=== PATIENT | female | born 1970 | race Caucasian/White ===

== ENCOUNTER 2017-05-04 14:51 | Inpatient (IN) ==
[2017-05-04] MEDS ORDERED: *HR* Morphine 2 MG/ML SYRINGE IVP ONE (16:03)
[2017-05-04] MEDS ORDERED: 0.9 % Sodium Chloride 1,000 ML IVC ONE ×2 (16:03→18:46)
[2017-05-04] MEDS ORDERED: *HR* HYDROmorphone (PF) 1 MG/ML SYRINGE IVP ONE ×2 (16:23→18:33)
[2017-05-04 16:35] LABS: Basophils # 0.1 K/mcL (0.0-0.2); Basophils % 0.5 %; Eosinophils # 0.3 K/mcL (0.0-0.6); Eosinophils % 2.9 %; Hemoglobin 16.1 g/dL (11.5-15.4); Immature Granulocytes % 0.9 % (0-4); Lymphocytes # 3.5 K/mcL (0.6-4.6); Mean Corpuscular HGB Conc 35.8 g/dL (31.6-35.5); Mean Corpuscular Hemoglobin 31.8 pg (28.0-33.3); Mean Corpuscular Volume 88.9 fL (83.0-100.0); Mean Platelet Volume 10.5 fL (9.4-12.4); Monocytes # 0.7 K/mcL (0.0-1.3); Monocytes % 7.6 %; Neutrophils # 4.6 K/mcL (1.6-8.9); Platelet Count 225 K/mcL (140-400); Red Blood Count 5.06 M/mcL (3.82-4.97); Red Cell Distribution Width 12.4 % (11.5-14.5); Segmented Neutrophils % 50.1 %
[2017-05-04 16:48] LABS: BUN/Creatinine Ratio 13 (6-26); Blood Urea Nitrogen 10 mg/dL (7-20); Calcium 9.4 mg/dL (8.6-10.8); Carbon Dioxide 23 mEq/L (19-29); Chloride 101 mEq/L (98-109); Glucose 294 mg/dL (70-99); Osmolality,Calculated 290 (280-300); Potassium 3.8 mEq/L (3.5-4.5); Sodium 135 mEq/L (136-145); eGFR For African Americans > 60 (> 60); eGFR For Non-African Americans > 60 (> 60)
[2017-05-04 17:37] LABS: Bilirubin,Urine Negative (Negative); Blood,Urine Negative (Negative); Clarity,Urine Clear (Clear); Color,Urine Yellow (Yellow); Glucose,Urine (UA) >=1000 mg/dL (Normal); Ketones,Urine Negative (Negative); Leukocyte Esterase,Urine Negative (Negative); Nitrite,Urine Negative (Negative); Protein,Urine Trace mg/dL (Neg-Trace); Specific Gravity,Urine 1.021 (1.010-1.025); Urobilinogen,Urine Normal (Normal)
[2017-05-04] MEDS ORDERED: Vancomycin 1,500 MG in D5% in Water 250 ML IVPB ONE (17:50)
[2017-05-04] MEDS ORDERED: Piperacillin/Tazobactam 3.375 GM in D5% in Water (Mini-Bag+) 100 ML IVPB ONE ×2 (17:50→18:15)
--- NOTE | 2017-05-04 18:40 | Emergency Department Note ---
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 exterminator helper use Qualified Code(s): E11.9 - Type 2 diabetes mellitus without complications Chickenpox Qualifiers: Varicella complications: without complication Qualified Code(s): B01.9 - Varicella without complication Hypertension Qualifiers: Hypertension type: essential hypertension Qualified Code(s): I10 - Essential ( primary) hypertension Ankylosing spondylitis Qualifiers: Ankylosing spondylitis location: unspecified site of spine Qualified Code(s): M45.9 - Ankylosing spondylitis of unspecified sites in spine Disposition: Admitted As Inpatient Condition: Fair Time of Disposition: 18:54 General Adult HPI - General Chief complaint: ED Urogenital-Female Stated complaint: Vaginal Abcess Time Seen by Provider: 05/04/17 15:24 Source: patient Mode of arrival: ambulatory Limitations: no limitations Nursing Notes Reviewed: Yes Vital Signs Reviewed: Yes - History of Present Illness HPI Narrative: 46-year-old female presents to the emergency department with concern for worsening of an abscess and cellulitis for which she was treated at [place] emergency department for 2 days ago. 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 Patient denies any fevers. Patient denies any history of hidradenitis. Pain Scale: 10 - Related Data Home Medications Medication Instructions Recorded Confirmed Metoprolol [Lopressor] 100 mg PO BID 04/11/15 05/04/17 Dulaglutide [Trulicity] 1.5 mg SQ SA 02/17/17 05/04/17 Clotrimazole/Betameth Dip CRM 1 appl TP BID 05/04/17 05/04/17 [Lotrisone CRM] Previous Rx's Medication Instructions Recorded Clindamycin HCl 300 mg PO Q6H #40 capsule 04/29/17 Allergies Allergy/AdvReac Type Severity Reaction Status Date / Time tramadol [From Ultram] Allergy Migraine Verified 05/04/17 14:57 ibuprofen AdvReac See Verified 05/04/17 14:57 Comments sulfamethoxazole AdvReac Nausea Verified 05/04/17 14:57 [From Bactrim] trimethoprim [From Bactrim] AdvReac Nausea Verified 05/04/17 14:57 All systems ED: reviewed and negative except as stated. Review of Systems: As Per HPI Constitutional: Denies: fever Gastrointestinal: Denies: abdominal pain, nausea, vomiting Genitourinary: Reports: other (Vaginal swelling, left gluteal redness). 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 history: Reports: cervical cancer, uterine fibroids - Social History Smoking Status: Current every day smoker Smokeless Tobacco Status: No Alcohol use: Reports: occasionally Drug use: Reports: none Physical Exam General: Well Appearing 46-year-old female, in no acute distress Head: autraumatic, EOMI, no conjuncitval pallor, no scleral icterus, Mouth: oral mucous membranes moist Neck: neck soft, trachea midline Chest:: Equal chest wall rise Lungs: Normal lungs sounds bilaterally, no wheezes, no respiratory distress Heart: normal heart sounds, normal rate and rhythm, Abdomen: soft, non-tender, no rigidity, no guarding, no rebdound tenderness exam: Redness and erythema with an opening in the left gluteal fold, mild erythema in the right superior aspect labia majora Lower Extremities: no pedal edema, calves non-tender Integumentary: as mentioned in the exam, skin warm Neuro: Alert Psych: normal affect, normal mood - General Limitations: no limitations General appearance: alert, in no apparent distress Course Vital Signs Temperature 97.4 F L 05/04/17 14:53 Pulse Rate 94 05/04/17 14:53 Respiratory Rate 20 05/04/17 14:53 Blood Pressure 177/101 05/04/17 14:53 O2 Sat by Pulse Oximetry 95 05/04/17 14:53 Temperature 98.3 F 05/04/17 21:35 Pulse Rate 85 05/04/17 21:35 Respiratory Rate 18 05/04/17 21:35 Blood Pressure 198/91 05/04/17 21:35 O2 Sat by Pulse Oximetry 94 05/04/17 21:35 Oxygen Delivery Oxygen Delivery Room Air Medical Decision Making - MDM Narrative Medical decision making narrative: 46-year-old female presents to the emergency department with concern for abscess with accompanying cellulitis in the left gluteal fold that is failed outpatient management with clindamycin. Patient is immunosuppressed with Humira for her autoimmune conditions dealing with her being HLA-B27 positive. Patient has recent diagnosis of chickenpox. Patient also has diabetes. CT scan of the pelvis was obtained due to concern for the abscess extending upward. CT scan of the pelvis did not reveal an abscess, but did reveal stranding as consistent with cellulitis. Because patient is immunosuppressed and has failed outpatient therapy regarding her condition, and admission was discussed with the patient for intravenous antibiotics as we do not want her condition to worsen. Patient agree with the plan. She was provided analgesia here in the emergency department as well as 2 L of normal saline and IV vancomycin and Zosyn. I spoke with the hospitalist regarding the patient's admission and he agreed to accept the patient. Pelvis CT 05/04/17 16:01 IMPRESSION: No evidence of pelvic abscess. Very mild asymmetric infiltration of the subcutaneous fat in the left gluteal fold suggesting a mild cellulitis. Previous hysterectomy. Moderate aortoiliac plaque. D/ / 05/04/2017 18:17:03 Antwon Leong MD / [facility] Interpreting Provider: Antwon Leong MD Vital Signs Temperature 97.4 F L 05/04/17 14:53 Pulse Rate 94 05/04/17 14:53 Respiratory Rate 20 05/04/17 14:53 Blood Pressure 177/101 05/04/17 14:53 O2 Sat by Pulse Oximetry 95 05/04/17 14:53 Temperature 97.4 F L 05/04/17 14:53 Pulse Rate 80 05/04/17 18:30 Respiratory Rate 18 05/04/17 18:30 Blood Pressure 177/90 05/04/17 18:30 O2 Sat by Pulse Oximetry 90 05/04/17 18:30 Oxygen Delivery Oxygen Delivery Room Air - Medical Records Medical records reviewed: Yes I reviewed the patient's medical records. - Lab Data Lab results reviewed: Yes I reviewed the patient's lab results. Result diagrams: 05/04/17 16:23 05/04/17 16:23 Lab Results 05/04/17 05/04/17 05/04/17 Range/Units 16:23 16:23 17:20 WBC 9.2 (4.3-11.1) K/mcL RBC 5.06 H (3.82-4.97) M/mcL Hgb 16.1 H (11.5-15.4) g/dL Hct 45.0 H (35.3-44.9) % MCV 88.9 (83.0-100.0) fL MCH 31.8 (28.0-33.3) pg MCHC 35.8 H (31.6-35.5) g/dL RDW 12.4 (11.5-14.5) % Plt Count 225 (140-400) K/mcL MPV 10.5 (9.4-12.4) fL Immature Gran % 0.9 (0-4) % Seg Neutrophils % 50.1 % Lymphocytes % 38.0 % Monocytes % 7.6 % Eosinophils % 2.9 % Basophils % 0.5 % Neutrophils # 4.6 (1.6-8.9) K/mcL Lymphocytes # 3.5 (0.6-4.6) K/mcL Monocytes # 0.7 (0.0-1.3) K/mcL Eosinophils # 0.3 (0.0-0.6) K/mcL Basophils # 0.1 (0.0-0.2) K/mcL Sodium 135 L (136-145) mEq/L Potassium 3.8 (3.5-4.5) mEq/L Chloride 101 (98-109) mEq/L Carbon Dioxide 23 (19-29) mEq/L BUN 10 (7-20) mg/dL Creatinine 0.75 (0.57-1.11) mg/dL Est GFR ( Amer) > 60 (> 60) Est GFR (Non-Af Amer) > 60 (> 60) BUN/Creatinine Ratio 13 (6-26) Glucose 294 H (70-99) mg/dL Calculated Osmolality 290 (280-300) Calcium 9.4 (8.6-10.8) mg/dL Urine Color Yellow (Yellow) Urine Clarity Clear (Clear) Urine pH 6.0 (5.0-8.0) pH Units Ur Specific Superior 1.021 (1.010-1.025) Urine Protein Trace (Neg-Trace) mg/dL Urine Glucose (UA) >=1000 H (Normal) mg/dL Urine Ketones Negative (Negative) mg/dL Urine Blood Negative (Negative) Urine Nitrite Negative (Negative) Urine Bilirubin Negative (Negative) Urine Urobilinogen Normal (Normal) mg/dL Ur Leukocyte Esterase Negative (Negative) Urine Test (Negative) 05/04/17 Range/Units 17:20 WBC (4.3-11.1) K/mcL RBC (3.82-4.97) M/mcL Hgb (11.5-15.4) g/dL Hct (35.3-44.9) % MCV (83.0-100.0) fL MCH (28.0-33.3) pg MCHC (31.6-35.5) g/dL RDW (11.5-14.5) % Plt Count (140-400) K/mcL MPV (9.4-12.4) fL Immature Gran % (0-4) % Seg Neutrophils % % Lymphocytes % % Monocytes % % Eosinophils % % Basophils % % Neutrophils # (1.6-8.9) K/mcL Lymphocytes # (0.6-4.6) K/mcL Monocytes # (0.0-1.3) K/mcL Eosinophils # (0.0-0.6) K/mcL Basophils # (0.0-0.2) K/mcL Sodium (136-145) mEq/L Potassium (3.5-4.5) mEq/L Chloride (98-109) mEq/L Carbon Dioxide (19-29) mEq/L BUN (7-20) mg/dL Creatinine (0.57-1.11) mg/dL Est GFR ( Amer) (> 60) Est GFR (Non-Af Amer) (> 60) BUN/Creatinine Ratio (6-26) Glucose (70-99) mg/dL Calculated Osmolality (280-300) Calcium (8.6-10.8) mg/dL Urine Color (Yellow) Urine Clarity (Clear) Urine pH (5.0-8.0) pH Units Ur Specific Superior (1.010-1.025) Urine Protein (Neg-Trace) mg/dL Urine Glucose (UA) (Normal) mg/dL Urine Ketones (Negative) mg/dL Urine Blood (Negative) Urine Nitrite (Negative) Urine Bilirubin (Negative) Urine Urobilinogen (Normal) mg/dL Ur Leukocyte Esterase (Negative) Urine Test Negative (Negative) - Radiology Data Radiology results reviewed: Yes I reviewed the patient's radiology results. Attestation Statement - Attestation Attestation: I examined this patient and my medical decision-making was reviewed with the Resident Physician, Dr. Hutson. I agree with the documented findings, disposition and treatment plan as described except to the extent set forth below. Patient is a 46-year-old white female with a history of diabetes, hypertension, HLA-B27, and on Humira who presents to the emergency room today with complaints of 2 cutaneous abscesses located to the vaginal area one of which is spontaneously draining. Patient's been complaining of increasing pain and tenderness to this area. Patient has had one area incised and drained at an outlying ER prior to today's visit and has been on outpatient antibiotics, clindamycin but feel her symptoms are worsening. Patient denies any fevers or chills, no nausea vomiting, has had elevated blood sugars but no upper respiratory symptoms cough sore throat or any other associated symptoms. Patient denies any urinary symptoms or vaginal discharge. Patient also states that she recently has had chickenpox outbreak. Agree patient's physical exam findings as documented. Patient with heart rate greater than 90 and hypertensive on arrival. Afebrile. Patient meets SIRS criteria so blood cultures were obtained a lactate was ordered IV fluids were initiated and empiric antibiotics were started as well as a lactate ordered. We also obtained CT of the pelvis to rule out any pelvic abscess. Patient's labs show an elevated white count in conjunction with a persistent heart rate in the 90s. Patient with hyperglycemia but no acidosis and normal kidney function. Remainder of labs are unremarkable. Patient went CT imaging of her pelvis with contrast which was negative for any pelvic abscess. There is stranding within the soft tissues in the vaginal area and gluteal cleft with cellulitis. Considering patient is diabetic, immunosuppressed, and has failed outpatient management we feel she would benefit from admission with IV antibiotics and continued monitoring. Patient's lactate was within normal limits and she remains hemodynamically stable at this time. Case was discussed with the hospitalist who accepted the patient for admission.
[2017-05-04] MEDS ORDERED: Naloxone 0.4 MG/ML INJ IVP PRN (20:05)
[2017-05-04] MEDS ORDERED: D5% in Water 1,000 ML IVC PRN (20:05)
[2017-05-04] MEDS ORDERED: Acetaminophen 325 MG TABLET PO PRN (20:05)
[2017-05-04] MEDS ORDERED: *HR* Dextrose 50 % in Water (Syg) 50 ML SYRINGE IVP PRN (20:05)
[2017-05-04] MEDS ORDERED: Ondansetron 4 MG/2 ML VIAL IVP PRN (20:05)
[2017-05-04] MEDS ORDERED: Dextrose Gel 15 GM PO PRN ×2 (20:05)
--- NOTE | 2017-05-04 20:11 | Internal Med History&Physical ---
Date of Encounter: 05/04/17 Time of Encounter: 20:08 Assessment and Plan (1) Cellulitis Current visit: Yes Status: Acute Left gluteal cellulitis and ulcer that failed outpatient therapy with clindamycin Discontinue Zosyn, continue vancomycin IV, add Rocephin and metronidazole No abscess to be drained at this moment Consider surgical consult if not improving IV fluids, hold immunosuppressive therapy Omeprazole for GI prophylaxis and subcutaneous heparin for DVT prophylaxis. The patient will be admitted as inpatient, expected to stay more than 2 midnights. Full code. Time spent on this admission 40 minutes Qualifiers: Site of cellulitis: trunk Site of cellulitis of trunk: perineum Qualified Code(s): L03.315 - Cellulitis of perineum (2) Hypertension Current visit: Yes Status: Acute Accelerated hypertension Can add hydralazine IV as needed Qualifiers: Hypertension type: essential hypertension Qualified Code(s): I10 - Essential (primary) hypertension (3) Ankylosing spondylitis Current visit: Yes Status: Acute Stopped Humira as she developed chickenpox Qualifiers: Ankylosing spondylitis location: unspecified site of spine Qualified Code(s ): M45.9 - Ankylosing spondylitis of unspecified sites in spine (4) Chickenpox Current visit: Yes Status: Acute Resolved Qualifiers: Varicella complications: without complication Qualified Code(s): B01.9 - Varicella without complication (5) Diabetes Current visit: Yes Status: Acute Use insulin sliding scale Patient uses trulicity at home Qualifiers: Diabetes mellitus type: type 2 Diabetes mellitus complication status: without complication 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 Javed is a 46 year old female with a past medical history of ankylosing spondylitis with HLA B 27 was treated with Humira, diabetes type 2 not insulin- dependent, recent chickenpox due to immunosuppressive therapy, hydradenitis went to [facility] ER 2 days ago and was started on clindamycin due to a left gluteal area of cellulitis. The patient took it for the past few days without improvement. Came complaining of severe pain in the same area. The CT scan shows a left gluteal fold cellulitis. Glucose is 294 hemoglobin 16.1 heart rate 94 blood pressure 185/89. Was started on vancomycin and Zosyn. Denies any fever, chest pain or shortness of breath. 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) - Social History Smoking Status: Current every day smoker Packs per day: 1/2 -Pack-a-day Smokeless Tobacco Status: No Alcohol use: occasionally Drug use: none - Additional Family History Additional family history: Father with myocardial infarction in his 40s and diabetes, mother with metastatic unknown cancer and CHF Internal Medicine - H&P: Meds Metoprolol [Lopressor] 100 mg PO BID 04/11/15 [History] Dulaglutide [Trulicity] 1.5 mg SQ SA 02/17/17 [History] Clindamycin HCl 300 mg PO Q6H #40 capsule 04/29/17 [Rx] Clotrimazole/Betameth Dip CRM [Lotrisone CRM] 1 appl TP BID 05/04/17 [History] 3 Allergy/AdvReac Type Severity Reaction Status Date / Time tramadol [From Ultram] Allergy Migraine Verified 05/04/17 14:57 ibuprofen AdvReac See Verified 05/04/17 14:57 Comments sulfamethoxazole AdvReac Nausea Verified 05/04/17 14:57 [From Bactrim] trimethoprim [From Bactrim] AdvReac Nausea Verified 05/04/17 14:57 All Systems PM: A 10-system review of systems was performed and is negative for pertinent findings except as documented above in the HPI. Review of systems: No dizziness, other systems out of the 10 reviewed were negative - Constitutional Vitals: Temp Pulse Resp BP Pulse Ox 97.4 F L 80 18 177/90 90 05/04/17 14:53 05/04/17 18:30 05/04/17 18:30 05/04/17 18:30 05/04/17 18:30 General appearance: Present: A&O X 3, morbidly obese - Head Head exam: Present: atraumatic, normocephalic - Eye Eye exam: Present: PERRL, conjuntiva pink, sclera anicteric Pupils: Present: PERRL - Neck Neck exam general surgery: Present: supple, trachea midline. Absent: lymphadenopathy - Respiratory Respiratory exam: Present: CTAB. Absent: accessory muscle use, rales, rhonchi, wheezes - Cardiovascular Cardiovascular exam: Present: RRR, +S1, +S2. Absent: diastolic murmur, gallop, rubs, systolic murmur - GI/Abdominal GI/Abdominal exam: Present: normal bowel sounds, soft, no peritoneal signs. Absent: distended, tenderness - Extremities Exam Extremities exam: Present: warm, radial pulses palpable and symmetrical. Absent : calf tenderness, cyanotic, pedal edema - Neurological Exam Neurological exam: Present: CN II-XII intact, oriented X3, no focal deficits. Absent: pronater drift, facial droop, speech deficit - Skin Skin exam: Present: dry. Absent: intact Additional comments: Health centimeter rounded ulcer in the left gluteal area close to the inguinal area surrounded by erythema. Very small less than 3 mm superficial absces in the right labia majora Internal Med - H&P Results - Labs CBC & Chem 7: 05/04/17 16:23 05/04/17 16:23
[2017-05-04] MEDS: Nicotine 14 MG PATCH.TD24 TD SCH (20:13)
[2017-05-04] MEDS ORDERED: Ipratropium/Albuterol Neb 3 ML IH PRN (20:23)
[2017-05-04] MEDS ORDERED: Vancomycin (wt based) 1,000 MG VIAL IVPB SCH (21:00)
[2017-05-04] MEDS ORDERED: CefTRIAXone 1,000 MG VIAL ONE (21:32)
[2017-05-04] MEDS: 0.9 % Sodium Chloride 1,000 ML IVC SCH (21:37)
[2017-05-04] MEDS: MetroNIDAZOLE 500 MG/100 ML 500 MG/100 ML BAG IVPB SCH ×2 (21:38→22:29)
[2017-05-04] MEDS: *HR* Heparin 5,000 UNIT/ML VIAL SQ SCH (21:38)
[2017-05-04] MEDS: Metoprolol 100 MG TABLET PO SCH (21:38)
[2017-05-04] MEDS: *HR* HYDROmorphone (PF) 1 MG/ML SYRINGE IVP PRN (21:42)
[2017-05-04] MEDS ORDERED: cefTRIAXone 1,000 MG in Water for inj. (sterile) 10 ML IVP SCH (22:00)
[2017-05-04] MEDS: *HR* Promethazine 25 MG/ML VIAL IVP PRN (22:47)
[2017-05-05 00:14] LABS: Hematocrit 42.7 % (35.3-44.9); Hemoglobin 14.8 g/dL (11.5-15.4); Mean Corpuscular HGB Conc 34.7 g/dL (31.6-35.5); Mean Corpuscular Hemoglobin 31.9 pg (28.0-33.3); Mean Platelet Volume 10.1 fL (9.4-12.4); Platelet Count 204 K/mcL (140-400); Red Blood Count 4.64 M/mcL (3.82-4.97); Red Cell Distribution Width 12.3 % (11.5-14.5)
[2017-05-05 00:25] LABS: BUN/Creatinine Ratio 10 (6-26); Blood Urea Nitrogen 8 mg/dL (7-20); Calcium 8.8 mg/dL (8.6-10.8); Carbon Dioxide 27 mEq/L (19-29); Chloride 102 mEq/L (98-109); Glucose 383 mg/dL (70-99); Osmolality,Calculated 298 (280-300); Sodium 137 mEq/L (136-145); eGFR For African Americans > 60 (> 60); eGFR For Non-African Americans > 60 (> 60)
[2017-05-05] MEDS: *HR* HYDROmorphone (PF) 1 MG/ML SYRINGE IVP PRN ×2 (04:37→08:19)
[2017-05-05] MEDS: *HR* Heparin 5,000 UNIT/ML VIAL SQ SCH ×2 (04:46→13:15)
[2017-05-05] MEDS ORDERED: Vancomycin 1,000 MG in D5% in Water 250 ML IVPB SCH (06:00)
[2017-05-05] MEDS ORDERED: Insulin LISPRO 300 UNITS/3 ML VIAL SQ SCH ×3 (07:30→21:00)
[2017-05-05] MEDS: Nicotine 14 MG PATCH.TD24 TD SCH (08:18)
[2017-05-05] MEDS: Metoprolol 100 MG TABLET PO SCH (08:18)
[2017-05-05] MEDS: MetroNIDAZOLE 500 MG/100 ML 500 MG/100 ML BAG IVPB SCH (08:18)
[2017-05-05] MEDS: *HR* Promethazine 25 MG/ML VIAL IVP PRN (08:19)
--- NOTE | 2017-05-05 12:53 | OB/GYN Consult Note ---
Date of Encounter: 05/05/17 Time of Encounter: 12:51 Assessment and Plan (1) Hidradenitis suppurativa Current Visit: Yes Status: Acute examined patient and right labial cyst with purulent discharge. Discussed with . Dr. Le updated Hidradenitis is not within obgyn specialist scope will need referral to surgery for resection. History of Present Illness Reason for consult: other (labial cyst) Past Med Surg Social Fam HX - Past Medical History Medical history: asthma, cancer, diabetes, GERD, hyperlipidemia, hypertension, liver disease, other Psychiatric history: bipolar - Past Surgical History Surgical History: cholecystectomy, hysterectomy, orthopedic, other (Left wrist arthroscopy, right carpal tunnel), other (Bladder surgery) - Social History Smoking Status: Current every day smoker Packs per day: 1/2 -Pack-a-day Smokeless Tobacco Status: No Alcohol use: occasionally Drug use: none Medications and Allergies Metoprolol [Lopressor] 100 mg PO BID 04/11/15 [History] Dulaglutide [Trulicity] 1.5 mg SQ SA 02/17/17 [History] Clindamycin HCl 300 mg PO Q6H #40 capsule 04/29/17 [Rx] Clotrimazole/Betameth Dip CRM [Lotrisone CRM] 1 appl TP BID 05/04/17 [History] 3 Allergy/AdvReac Type Severity Reaction Status Date / Time tramadol [From Ultram] Allergy Migraine Verified 05/04/17 14:57 ibuprofen AdvReac See Verified 05/04/17 14:57 Comments sulfamethoxazole AdvReac Nausea Verified 05/04/17 14:57 [From Bactrim] trimethoprim [From Bactrim] AdvReac Nausea Verified 05/04/17 14:57 Review of Systems Genitourinary Female: genital lesions (pt states has recurrent labial and groin cysts. Usually lances and drains with home wtih resolution, This time not resolving. ), urinary incontinence Exam - Vital Signs Vital signs: Initial Vital Signs Temp Pulse Resp BP Pulse Ox 97.4 F L 94 20 177/101 95 05/04/17 14:53 05/04/17 14:53 05/04/17 14:53 05/04/17 14:53 05/04/17 14:53 - Vulva Vulva: right: ulceration (cyst noted to right labia, draining purulent discharge , pt with pain with any palpation and manupulation.) Results Result Diagrams: 05/05/17 00:02 05/05/17 00:02 Abnormal lab results Glucose 383 mg/dL (70-99) H 05/05/17 00:02 POC Glucose 390 (58-89) H 05/05/17 10:52 Urine Glucose (UA) >=1000 mg/dL (Normal) H 05/04/17 17:20 All other labs normal. Consult Discharge Plan - Plan Referrals: Haily Hicks CNP [Primary Care Provider] -
[2017-05-05] MEDS: 0.9 % Sodium Chloride 1,000 ML IVC SCH (13:13)
[2017-05-05] MEDS ORDERED: *HR* OxyCODONE/APAP 5/325 TABLET PO PRN (13:22)
[2017-05-05] MEDS ORDERED: Vancomycin 1,500 MG in D5% in Water 250 ML IVPB SCH (14:00)
--- NOTE | 2017-05-05 14:06 | General Surgery Consult Note ---
Date of Encounter: 05/05/17 Time of Encounter: 14:05 Assessment and Plan (1) Abscess of skin or subcutaneous tissue Current Visit: Yes Status: Acute cont abx follow up US to assess for fluid collection if no fluid, then only abx needed; if there is fluid, then will consider bedside drainag - possible bedside drainage of L labial boil/abscess - cares per primary Qualifiers: Site of cutaneous abscess: other site Qualified Code(s): L02.818 - Cutaneous abscess of other sites History of Present Illness Consult date: 05/05/17 Reason for consult: other (Left leg abscess/boil) Requesting physician: Lavelle Le History of present illness: 46 year old female with a PMH significant for ankylosing spondylitis with HLA B 27 was treated with Humira, diabetes type 2 not insulin-dependent, recent chickenpox due to immunosuppressive therapy, hydradenitis went to [facility] ER 2 days ago and was started on clindamycin due to a left lower extremity/inner thigh abscess.. The patient took it for the past few days without improvement. Came complaining of severe pain in the same area. SHe was reportedly drained while in the ER, but continues to have pain. The CT scan shows a left gluteal fold cellulitis. Surgery was consulted for surgical recommendations. Past Med Surg Social Fam HX - Past Medical History Medical history: asthma, cancer, diabetes, GERD, hyperlipidemia, hypertension, liver disease, other Psychiatric history: bipolar - Past Surgical History Surgical History: cholecystectomy, hysterectomy, orthopedic, other (Left wrist arthroscopy, right carpal tunnel), other (Bladder surgery) - Social History Smoking Status: Current every day smoker Packs per day: 1/2 -Pack-a-day Smokeless Tobacco Status: No Alcohol use: occasionally Drug use: none - Additional Family History Additional family history: non contributory Medications and Allergies Metoprolol [Lopressor] 100 mg PO BID 04/11/15 [History] Dulaglutide [Trulicity] 1.5 mg SQ SA 02/17/17 [History] Clindamycin HCl 300 mg PO Q6H #40 capsule 04/29/17 [Rx] Clotrimazole/Betameth Dip CRM [Lotrisone CRM] 1 appl TP BID 05/04/17 [History] 3 Allergy/AdvReac Type Severity Reaction Status Date / Time tramadol [From Ultram] Allergy Migraine Verified 05/04/17 14:57 ibuprofen AdvReac See Verified 05/04/17 14:57 Comments sulfamethoxazole AdvReac Nausea Verified 05/04/17 14:57 [From Bactrim] trimethoprim [From Bactrim] AdvReac Nausea Verified 05/04/17 14:57 Review of Systems All systems PM: A 10-system review of systems was performed and is negative for pertinent findings except as documented above in the HPI. General Surgery Exam Initial Vital Signs Temp Pulse Resp BP Pulse Ox 97.4 F L 94 20 177/101 95 05/04/17 14:53 05/04/17 14:53 05/04/17 14:53 05/04/17 14:53 05/04/17 14:53 - General physical appearance well developed, well nourished, no distress - ENT normal mucosa, normocephalic - Respiratory normal expansion, normal respiratory effort - Cardiovascular Cardiovascular exam: Present: RRR - Abdomen Abdomen general surgery: Present: soft, non tender - Genitourinary Present: normal external genitalia, other (small labial boil/abscess) - Integumentary Integumentary general surgery: Present: warm and dry, other (small 2cm region that has mild erythema, no fluctuance, no crepitus; fibrinous material ) - Neurologic Present: CN 2-12 grossly intact - Psychiatric Psychiatric general surgery: Present: A&Ox3 Exam Initial Vital Signs Temp Pulse Resp BP Pulse Ox 97.4 F L 94 20 177/101 95 05/04/17 14:53 05/04/17 14:53 05/04/17 14:53 05/04/17 14:53 05/04/17 14:53 Results - Labs 05/05/17 00:02 05/05/17 00:02 Abnormal lab results Glucose 383 mg/dL (70-99) H 05/05/17 00:02 POC Glucose 390 (58-89) H 05/05/17 10:52 Urine Glucose (UA) >=1000 mg/dL (Normal) H 05/04/17 17:20 Diabetes panel 05/05/17 Range/Units 00:02 Sodium 137 (136-145) mEq/L Potassium 4.0 (3.5-4.5) mEq/L Chloride 102 (98-109) mEq/L Carbon Dioxide 27 (19-29) mEq/L BUN 8 (7-20) mg/dL Creatinine 0.81 (0.57-1.11) mg/dL Glucose 383 H (70-99) mg/dL Calcium 8.8 (8.6-10.8) mg/dL Calcium panel 05/05/17 Range/Units 00:02 Calcium 8.8 (8.6-10.8) mg/dL Pituitary panel 05/05/17 Range/Units 00:02 Sodium 137 (136-145) mEq/L Potassium 4.0 (3.5-4.5) mEq/L Chloride 102 (98-109) mEq/L Carbon Dioxide 27 (19-29) mEq/L BUN 8 (7-20) mg/dL Creatinine 0.81 (0.57-1.11) mg/dL Glucose 383 H (70-99) mg/dL Calcium 8.8 (8.6-10.8) mg/dL Adrenal panel 05/05/17 Range/Units 00:02 Sodium 137 (136-145) mEq/L Potassium 4.0 (3.5-4.5) mEq/L Chloride 102 (98-109) mEq/L Carbon Dioxide 27 (19-29) mEq/L BUN 8 (7-20) mg/dL Creatinine 0.81 (0.57-1.11) mg/dL Glucose 383 H (70-99) mg/dL Calcium 8.8 (8.6-10.8) mg/dL All other labs normal. - Imaging CT scan - abdomen: report reviewed, image reviewed CT scan - pelvis: report reviewed, image reviewed (no fluid collection to drain) Consult Discharge Plan - Plan Referrals: Haily Hicks, RIO [Primary Care Provider] -
[2017-05-05 15:18] VITALS: BP 174/93
--- NOTE | 2017-05-05 16:14 | Discharge Summary ---
Date of Encounter: 05/05/17 Time of Encounter: 16:11 - Discharge Diagnosis (1) Cellulitis Priority: Primary Status: Acute Qualifiers: Site of cellulitis: trunk Site of cellulitis of trunk: perineum Qualified Code(s): L03.315 - Cellulitis of perineum (2) Abscess of skin or subcutaneous tissue Priority: Secondary Status: Acute Qualifiers: Site of cutaneous abscess: other site Qualified Code(s): L02.818 - Cutaneous abscess of other sites (3) Hypertension Priority: Secondary Status: Chronic Qualifiers: Hypertension type: essential hypertension Qualified Code(s): I10 - Essential (primary) hypertension (4) Diabetes Priority: Secondary Status: Chronic Qualifiers: Diabetes mellitus type: type 2 Diabetes mellitus complication status: without complication 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: without petroleum 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 plant operator use Qualified Code(s): E11.9 - Type 2 diabetes mellitus without complications (5) Hidradenitis suppurativa Priority: Secondary Status: Acute (6) Ankylosing spondylitis Priority: Secondary Status: Chronic Qualifiers: Ankylosing spondylitis location: unspecified site of spine Qualified Code(s ): M45.9 - Ankylosing spondylitis of unspecified sites in spine - Discharge Medications Prescriptions: OxyCODONE/APAP 5/325 [Percocet 5/325 MG] 1 each PO Q6HR PRN #20 tablet PRN Reason: Pain Amoxicillin/Clavulanate [Augmentin] 875 mg PO BIDWM #20 tablet Doxycycline Hyclate 100 mg PO BID #20 capsule Home Medications: Metoprolol [Lopressor] 100 mg PO BID 04/11/15 [History] Dulaglutide [Trulicity] 1.5 mg SQ SA 02/17/17 [History] Clotrimazole/Betameth Dip CRM [Lotrisone CRM] 1 appl TP BID 05/04/17 [History] Amoxicillin/Clavulanate [Augmentin] 875 mg PO BIDWM #20 tablet 05/05/17 [Rx] Doxycycline Hyclate 100 mg PO BID #20 capsule 05/05/17 [Rx] OxyCODONE/APAP 5/325 [Percocet 5/325 MG] 1 each PO Q6HR PRN #20 tablet 05/05/17 [Rx] Allergies/Adverse Reactions: 3 Allergy/AdvReac Type Severity Reaction Status Date / Time tramadol [From Ultram] Allergy Migraine Verified 05/04/17 14:57 ibuprofen AdvReac See Verified 05/04/17 14:57 Comments sulfamethoxazole AdvReac Nausea Verified 05/04/17 14:57 [From Bactrim] trimethoprim [From Bactrim] AdvReac Nausea Verified 05/04/17 14:57 Procedures/tests Complete & Pending: Procedures Performed prior 72 hours Category Date Time Status US bladder/limited pelvis [US] Stat Exams 05/05/17 14:00 Completed Date of admission: 05/04/17 22:54 Primary care physician: Haily Hicks Consults: 05/05/17 10:17 Consult to Surgery [CONS] Routine Consulting Provider: [facility] Reason for Consult: left groin abscess Time Notified: 10:17 Call Completed: Yes Discharging clinician: Lavelle Le Anticipated date of discharge: 05/05/17 - Patient Status Disposition: Home, Self-Care Condition: Good Functional capacity at discharge: independent ambulation Overall status at discharge: patient is progressing back to baseline - Discharge Instructions Instructions: Cellulitis (DC), Diabetes Mellitus Type 2 in Adults (DC) Follow Up With: Haily Hicks CNP [Primary Care Provider] - (in 1 week) Mariya Liriano CNP [Advanced Practice Nurse] - 05/13/17 9:00 am Additional Instructions: With wound clinic within 1 week - Diet and Activity Activity: increase activity as tolerated Diet: diabetic diet, low fat, low cholesterol, low salt diet Hospital course: Ms. Javed is a 46 year old female Patient with a history of ankylosing spondylitis, diabetes mellitus type 2, hypertension who presented to the ER with complaints of erythema and redness in her left gluteal fold region for which she had been treated with incision and drainage and outpatient antibiotics without any improvement in her symptoms. She was hospitalized for intravenous antibiotics. CT scan of the pelvis did not show any underlying abscess. Surgery was also consulted to help with management and they do not believe any further procedure needed to be done for this lesion. Patient also has a right labial abscess which was drained by surgery. Since she failed treatment with outpatient clindamycin, she is now being placed on Augmentin and doxycycline to complete 10 day treatment course. She will follow up with surgery in clinic for follow-up. Patient's blood sugars have been elevated here but she has refused insulin. Patient takes Trulicity at home and has missed today's dose. She is advised to take it as soon as she gets home. She will follow up with her primary care provider for further management. - Time Spent with Patient Total time spent providing and/or coordinating discharge services: Less than 30 minutes (25 min) - Constitutional Vitals: Temp Pulse Resp BP Pulse Ox 97.8 F 82 16 174/93 97 05/05/17 15:14 05/05/17 15:14 05/05/17 15:14 05/05/17 15:14 05/05/17 15:14 General appearance: Present: cooperative, A&O X 3, morbidly obese, pleasant, answers questions appropriately - Neck Neck exam general surgery: Present: supple, trachea midline. Absent: lymphadenopathy - Respiratory Respiratory exam: Present: CTAB. Absent: accessory muscle use, rales, rhonchi, wheezes - Cardiovascular Cardiovascular exam: Present: RRR, +S1, +S2. Absent: diastolic murmur, gallop, rubs, systolic murmur - GI/Abdominal GI/Abdominal exam: Present: normal bowel sounds, soft, no peritoneal signs. Absent: distended, tenderness - Skin Skin exam: Present: dry, intact Additional comments: 3 cm wound in the left upper medial thigh within the gluteal fold with surrounding erythema. No fluctuance noted. Fibrinous material enclosing the wound. Right labial abscess present not draining yet. With surrounding cellulitis
[2017-05-05] MEDS ORDERED: Lidocaine 1% 20 ML MDV INFILT ONE (16:15)
--- NOTE | 2017-05-05 16:23 | General Surgery Procedure Note ---
Date of procedure: 05/05/17 Pre-op diagnosis: Right labial abscess Post-op diagnosis: same Procedure: After informed consent was obtained and timeout completed, the patient's right labia was prepped and draped. The area was localized with 4 ML's of 1% lidocaine. After achieving appropriate localization, a 2 cm incision was made over the most fluctuant area using a size 10 blade. There was immediate return of a scant amount of purulent drainage. The cavity was further opened and decompressed using hemostats. The cavity covered with 4 x 4 gauze and taped to secure with a dry dressing. Complications: None Anesthesia: local Surgeon: Renée Allen Track Coach: Mraiya Liriano Estimated blood loss (cc): 0 Pathology: none sent Condition: stable Disposition: no change
[2017-05-05] MEDS ORDERED: Aminoglycoside Consult 1 EACH MC ONE (17:19)
[2017-05-05] MEDS ORDERED: Insulin DETEMIR 100 UNIT/ML X5UNITS SQ SCH (21:00)
== END 2017-05-05 17:20 | disposition home or self-care (01) | DRG 383 ==
LOC: EMEROO 14:51 → 3ANU 14:51
PROVIDERS: ADMIT Internal Medicine; ATTEND Internal Medicine

== ENCOUNTER 2018-02-02 21:03 | Inpatient (IN) ==
[2018-02-03] MEDS ORDERED: Naloxone 0.4 MG/ML INJ IVP PRN (00:07)
[2018-02-03] MEDS ORDERED: *HR* LORazepam 2 MG/ML VIAL IVP PRN (00:07)
[2018-02-03] MEDS ORDERED: Acetaminophen 325 MG TABLET PO PRN (00:07)
[2018-02-03] MEDS ORDERED: Dextrose Gel 15 GM/37.5 ML TUBE PO PRN ×2 (00:09)
[2018-02-03] MEDS ORDERED: *HR* Dextrose 50 % in Water (Syg) 50 ML SYRINGE IVP PRN (00:09)
[2018-02-03] MEDS ORDERED: D5% in Water 1,000 ML IVC PRN (00:09)
--- NOTE | 2018-02-03 00:17 | Internal Med History&Physical ---
<Ammon Bai - Last Filed: 02/03/18 00:12> Date of Encounter: 02/03/18 Time of Encounter: 00:12 Internal Medicine - H&P: HPI Chief complaint: Seizure Admitted From: Hospital to Hospital Transfer Plans for Post Hospital Care: Home History of present illness: Ms. Javed is a 47 year old female with past medical history of asthma, diabetes , reflux, hyperlipidemia, hypertension, liver disease, bipolar, cervical cancer who presents to emergency room with complaint of seizures. She originally presented to [facility] emergency room and was transferred to [facility] for further care. Patient is notably very somnolent during time of interview however history is provided from who is at bedside. He states that starting around 4 PM this evening patient had a witnessed seizure by his daughter and demonstrated jerking movements diffusely. She has never had seizure activity in the past. Patient denied any prodromal symptoms except she has been having a headache for approximately the past week. She has also been treated for UTI as an outpatient. She has not been complaining of any chest pain, shortness of breath, fevers, chills, change in bowel movement, nausea, vomiting. She is not having any symptoms of weakness, numbness, tingling. Per [facility]'s ED note, " She has been seen and evaluated several times in the last 10 days at different emergency rooms. Yesterday she had a CT angiogram of her neck and a days ago she has CT scan of her brain after complaining of headache and numbness on her right side. Extensive workup was negative and she was referred to neurology and has a follow-up appointment scheduled for February 13. She was also diagnosed yesterday with urinary tract infection and prescribed Keflex. 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 " She was also noted to have intermittent numbness and tingling of bilateral UE the last couple days. Was given Fioricet for her headache and discharged home. Vital signs: Significant for hypertension of 171/97 and she has been tolerating 2 L of oxygen at 93%. Laboratory results have been unremarkable including urinalysis which shows increased specific gravity but otherwise no signs of infection. Urine drug screen was positive for barbiturates. CT scan of the head showed no acute process. She had another witnessed seizure at [facility] and she got a loading dose of Keppra as well as Ativan in [facility] and was transferred here. She did have loss of bladder control at that time. Past medical history as above Past surgical history includes cholecystectomy, hysterectomy, orthopedics Social history includes one half pack per day smoker, denies alcohol or drug use. 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, alkalizing spondalysis Psychiatric history: bipolar - Past Surgical History Surgical History: cholecystectomy, hysterectomy, orthopedic, other, other Additional surgical history: CARPEL TUNNEL SX, BLADDER SX - Social History Smoking Status: Current every day smoker Packs per day: 1 Smokeless Tobacco Status: No Alcohol use: occasionally Drug use: none - Family History Mother Adopted: [place]: NERY Family Member Ethnicity: Non- Living Status: Age at : 70 Cause of : CANCER Hx Family Cardiac Disorders: Yes Internal Medicine - H&P: Meds Metoprolol [Lopressor] 100 mg PO BID 04/11/15 [History] Dulaglutide [Trulicity] 1.5 mg SQ SA 02/17/17 [History] Aspirin [Lo-Dose Aspirin EC] 81 mg PO DAILY 01/25/18 [History] Atorvastatin [Lipitor] 10 mg PO HS 01/25/18 [History] Losartan [Cozaar] 50 mg PO DAILY 01/25/18 [History] Omeprazole [PriLOSEC] 20 mg PO DAILY 01/25/18 [History] Pioglitazone [Actos] 15 mg PO 0800 01/25/18 [History] Acetaminophen/Butalbital/Caffe [Fioricet] 1 each PO DAILY #10 tablet 02/03/18 [ Rx] cephALEXin [Keflex] 500 mg PO BID #14 capsule 02/03/18 [Rx] levETIRAcetam [Roweepra] 1,000 mg PO BID #60 tablet 02/03/18 [Rx] 3 Allergy/AdvReac Type Severity Reaction Status Date / Time bupropion [From Wellbutrin] Allergy Confusion Verified 02/01/18 11:01 haloperidol [From Haldol] Allergy See Verified 02/02/18 18:02 Comments latex Allergy Blister Verified 02/01/18 11:01 quinapril [From Accupril] Allergy Palpitation Verified 02/01/18 11:01 s tramadol [From Ultram] Allergy Migraine Verified 02/01/18 11:01 ibuprofen AdvReac See Verified 02/01/18 11:01 Comments morphine AdvReac Palpitation Verified 02/01/18 11:01 s sulfamethoxazole AdvReac Nausea Verified 02/01/18 11:01 [From Bactrim] trimethoprim [From Bactrim] AdvReac Nausea Verified 02/01/18 11:01 ROS unobtainable: due to mental status All Systems PM: A 10-system review of systems was performed and is negative for pertinent findings except as documented above in the HPI. - Constitutional Constitutional: fatigue, no anorexia, no fever(s), no weakness, no weight gain, no weight loss - EENT Eyes: no blurry vision - Cardiovascular Cardiovascular ROS IM: no chest pain, no dyspnea, no dyspnea on exertion, no edema, no lightheadedness, no orthopnea, no syncope - Respiratory Respiratory: no cough, no dyspnea, no dyspnea on exertion, no wheezing - Gastrointestinal Gastrointestinal: no abdominal pain, no constipation, no diarrhea, no nausea, no vomiting - Genitourinary Genitourinary: urinary incontinence, no dysuria, no urinary urgency - Neurological Neurological ROS: confusion, headache(s), no abnormal gait, no abnormal speech, no dizziness, no loss of vision, no numbness, no paresthesias, no tingling, no weakness, no other visual disturbances - Constitutional Vitals: Temp Pulse Resp BP Pulse Ox 98.4 F 96 16 171/97 93 02/02/18 23:05 02/02/18 23:05 02/02/18 23:05 02/02/18 23:05 02/02/18 23:05 Exam: Gen.: Vitals noted. No acute distress. Somnolent during exam, does answer questions but then falls right back asleep HEENT: PERRL/EOMI, oropharynx clear, Normocephalic, atraumatic, MMM. Cardiac: RRR, no murmur, +S1/S2. Mildly tachycardic Pulmonary: CTA bilaterally, no wheezes, rales or rhonchi, equal chest expansion Abdomen: soft, nontender, BS noted, no guarding MSK: ROM intact, no joint swelling noted. Strength 5/5 Extremities: no BLE edema, nontender calf, no cyanosis or clubbing Neuro: Somnolent, moves all extremities, no focal deficits. No reported numbness or tingling. Cranial nerves II through XII intact Psych: Appropriate mood and behavior - Assessment and plan (1) New onset seizure Status: Acute Assessment and plan: - New-onset seizure activity with jerking, urinary incontinence, postictal confusion - Episode witnessed in [facility] emergency department - Loaded with Keppra. - Stable at this time however is lethargic - Inciting event unknown at this time, UA within normal limits with previously documented nitrites. - CT head negative and [facility] Plan - We will consult neurology, patient recommendations - Continue Keppra 1000 mg twice a day - We will obtain EEG, brain MRI to rule out intracranial pathology - Ativan 2 mg when necessary for seizure activity (2) Hypertension Status: Chronic Assessment and plan: - Blood pressure elevated on presentation at 171/97 - Unclear on this patient was taking home blood pressure medications - We will resume home medications and monitor at this time Qualifiers: Hypertension type: essential hypertension Qualified Code(s): I10 - Essential (primary) hypertension (3) Diabetes Status: Chronic Assessment and plan: - Blood sugar 213 on admission - Denies hypoglycemic symptoms - Sliding scale insulin, diabetic diet once more alert We will obtain A1c Qualifiers: Diabetes mellitus type: type 2 Diabetes mellitus system planning engineer insulin use: without system planning engineer use Diabetes mellitus complication status: without complication Qualified Code(s): E11.9 - Type 2 diabetes mellitus without complications (4) Tobacco abuse Status: Chronic Assessment and plan: Discussed cessation with however patient was not alert enough to conversation (5) Chronic headache Status: Acute Assessment and plan: - Possibly prodromal symptoms preceding seizures - We will give symptomatic control right now and treat underlying cause as above Qualifiers: Headache type: unspecified Intractability: not intractable Qualified Code (s): R51 - Headache (6) Urinary tract infection Status: Suspected Assessment and plan: - UTI per ED documentation at [facility] from outpatient setting - Urinalysis obtained in [facility] and showed increased concentration but no evidence of infection - Patient reportedly did not start taking her prescribed Keflex - Urinalysis forward on 02/01 was positive for nitrites. Will continue previously prescribed Keflex - Urine culture pending collection Qualifiers: Urinary tract infection type: acute cystitis Hematuria presence: without hematuria Qualified Code(s): N30.00 - Acute cystitis without hematuria (7) DVT prophylaxis Status: Acute Assessment and plan: Heparin 5000 units every 12 hours - Time Spent With Patient Total time spent is greater than 50% in coordination of care (as documented) at patient's floor/unit and/or counseling patient: <Brando Cutler - Last Filed: 02/03/18 21:41> Date of Encounter: 02/03/18 Internal Medicine - H&P: HPI History of present illness: Ms. Javed is a 47 year old female All Systems PM: A 10-system review of systems was performed and is negative for pertinent findings except as documented above in the HPI. - Constitutional Vitals: Temp Pulse Resp BP Pulse Ox 97.9 F 89 17 148/80 98 02/03/18 14:48 02/03/18 14:48 02/03/18 14:48 02/03/18 14:48 02/03/18 14:48 Internal Med - H&P Results - Labs CBC & Chem 7: 02/03/18 03:30 02/03/18 03:30 Labs: Short CBC 02/03/18 Range/Units 03:30 WBC 12.5 H (4.3-11.1) K/mcL Hgb 15.1 (11.5-15.4) g/dL Hct 44.3 (35.3-44.9) % Plt Count 214 (140-400) K/mcL Neutrophils # 8.6 (1.6-8.9) K/mcL BMP 02/03/18 03:30 Sodium 136 Potassium 3.8 Chloride 105 Carbon Dioxide 19 L BUN 9 Creatinine 0.52 L Glucose 148 H Calcium 8.8 - Impressions ITS Impressions Brain MRI 02/03/18 00:11 IMPRESSION: 1. Motion degraded examination. 2. No acute intracranial abnormality. Specifically, no acute infarction or evidence of mesial temporal sclerosis. 3. 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 D/ / 02/03/2018 11:28:05 Kings Rubi MD / [facility] Interpreting Provider: Kings Rubi MD - Attending Attestation Seen and assessed. Agree with plan per resident. Continue management for new onset seizures - Assessment and plan (1) New onset seizure Status: Acute (2) Hypertension Status: Chronic Qualifiers: Hypertension type: essential hypertension Qualified Code(s): I10 - Essential (primary) hypertension (3) Diabetes Status: Chronic Qualifiers: Diabetes mellitus type: type 2 Diabetes mellitus residential insulin use: without system planning engineer use Diabetes mellitus complication status: without complication Qualified Code(s): E11.9 - Type 2 diabetes mellitus without complications (4) Tobacco abuse Status: Chronic (5) Chronic headache Status: Acute Qualifiers: Headache type: unspecified Intractability: not intractable Qualified Code (s): R51 - Headache (6) Urinary tract infection Status: Suspected Qualifiers: Urinary tract infection type: acute cystitis Hematuria presence: without hematuria Qualified Code(s): N30.00 - Acute cystitis without hematuria - Time Spent With Patient Total time spent is greater than 50% in coordination of care (as documented) at patient's floor/unit and/or counseling patient:
[2018-02-03] MEDS ORDERED: hydrALAZINE 10 MG TABLET PO PRN (01:07)
[2018-02-03 03:48] LABS: Basophils % 0.3 %; Eosinophils # 0.1 K/mcL (0.0-0.6); Hematocrit 44.3 % (35.3-44.9); Hemoglobin 15.1 g/dL (11.5-15.4); Immature Granulocytes % 0.3 % (0-4); Lymphocytes # 2.9 K/mcL (0.6-4.6); Mean Corpuscular HGB Conc 34.1 g/dL (31.6-35.5); Mean Corpuscular Hemoglobin 31.5 pg (28.0-33.3); Mean Corpuscular Volume 92.3 fL (83.0-100.0); Mean Platelet Volume 10.4 fL (9.4-12.4); Monocytes # 0.9 K/mcL (0.0-1.3); Monocytes % 6.9 %; Neutrophils # 8.6 K/mcL (1.6-8.9); Platelet Count 214 K/mcL (140-400); Red Cell Distribution Width 12.3 % (11.5-14.5); Segmented Neutrophils % 68.5 %
[2018-02-03 05:21] LABS: BUN/Creatinine Ratio 17 (6-26); Blood Urea Nitrogen 9 mg/dL (6-20); Calcium 8.8 mg/dL (8.6-10.3); Carbon Dioxide 19 mEq/L (23-29); Chloride 105 mEq/L (98-107); Cholesterol 148 mg/dL (< 200); Glucose 148 mg/dL (70-105); HDL Cholesterol 73 mg/dL (40-59); LDL Cholesterol,Calculated 53 mg/dL (0-99); Osmolality,Calculated 283 (280-300); Potassium 3.8 mEq/L (3.5-5.1); Sodium 136 mEq/L (136-145); Triglycerides 110 mg/dL (< 150); eGFR For Non-African Americans > 60 (> 60)
[2018-02-03] MEDS ORDERED: *HR* Heparin 5,000 UNIT/ML VIAL SQ SCH (06:00)
[2018-02-03] MEDS ORDERED: levETIRAcetam 250 MG TABLET PO SCH (06:00)
[2018-02-03] MEDS ORDERED: Nicotine 7 MG PATCH.TD24 TD SCH (07:15)
[2018-02-03 07:40] LABS: Estimated Average Glucose 226 mg/dl; Hemoglobin A1C 9.5 %
[2018-02-03] MEDS: Insulin LISPRO 300 UNITS/3 ML VIAL SQ SCH ×2 (08:03→13:03)
[2018-02-03] MEDS ORDERED: Aspirin Enteric Coated 81 MG Tablet PO SCH (09:00)
[2018-02-03] MEDS ORDERED: Metoprolol 100 MG TABLET PO SCH (09:00)
[2018-02-03] MEDS ORDERED: cephALEXin 500 MG CAPSULE PO SCH (09:00)
--- NOTE | 2018-02-03 13:48 | Internal Med Progress Note ---
Hospitalist Progress Note - Encounter Date of Encounter: 02/03/18 Time of Encounter: 13:44 - Subjective Interval History: Seen and examined at bedside. Patient is new to me, information obtained from chart review and patient report and has been at bedside as patient does not remember events. Says she is back to baseline and would like to go home today if possible. No further seizure recurrence. Patient and both report increased stressors at home. No previous history of seizures. - Exam Vitals: Temp Pulse Resp BP Pulse Ox 97.9 F 81 16 115/73 93 02/03/18 10:59 02/03/18 10:59 02/03/18 10:59 02/03/18 11:30 02/03/18 10:59 Exam: Gen.: Vitals noted. No acute distress. HEENT: PERRL/EOMI, oropharynx clear, Normocephalic, atraumatic, MMM. Cardiac: RRR, no murmur, +S1/S2. Mildly tachycardic Pulmonary: CTA bilaterally, no wheezes, rales or rhonchi, equal chest expansion Abdomen: soft, nontender, BS noted, no guarding MSK: ROM intact, no joint swelling noted. Strength 5/5 Extremities: no BLE edema, nontender calf, no cyanosis or clubbing Neuro: Somnolent, moves all extremities, no focal deficits. No reported numbness or tingling. Cranial nerves II through XII intact Psych: Appropriate mood and behavior - Assessment and Plan (1) New onset seizure Current Visit: Yes Status: Acute Assessment and Plan: new-onset seizure activity with jerking, urinary incontinence, tongue biting and postictal confusion. Episode witnessed in [place] emergency department. Loaded with Keppra. Brain MRI with evidence of old infarct otherwise nonacute. EEG pending. Cont Keppra. Neurology consulted. (2) Hypertension Current Visit: Yes Status: Chronic Assessment and Plan: per hx. BP controlled. Cont home BP medication (3) Diabetes Current Visit: Yes Status: Chronic Assessment and Plan: uncontrolled; Hgb A1c 9.5. Holding home diabetes medication. SSI. Monitor blood sugar and titrate PRN (4) Tobacco abuse Current Visit: Yes Status: Chronic Assessment and Plan: current smoker; cessation advised (5) Chronic headache Current Visit: Yes Status: Acute Assessment and Plan: possibly prodromal symptoms preceding seizures; symptomatic control right now and treat underlying cause as above (6) Urinary tract infection Current Visit: Yes Status: Suspected Assessment and Plan: UA concerning for UTI. Cont keflex. Follow cx and narrow accordingly DVT Prophylaxis: heparin - Time Spent with Patient Total time spent is greater than 50% in coordination of care (as documented) at patient's floor/unit and/or counseling patient: Internal Medicine: Result - Labs CBC & Chem 7: 02/03/18 03:30 02/03/18 03:30 Labs: Short CBC 02/03/18 Range/Units 03:30 WBC 12.5 H (4.3-11.1) K/mcL Hgb 15.1 (11.5-15.4) g/dL Hct 44.3 (35.3-44.9) % Plt Count 214 (140-400) K/mcL Neutrophils # 8.6 (1.6-8.9) K/mcL BMP 02/03/18 03:30 Sodium 136 Potassium 3.8 Chloride 105 Carbon Dioxide 19 L BUN 9 Creatinine 0.52 L Glucose 148 H Calcium 8.8 - Impressions Impressions Brain MRI 02/03/18 00:11 IMPRESSION: 1. Motion degraded examination. 2. No acute intracranial abnormality. Specifically, no acute infarction or evidence of mesial temporal sclerosis. 3. 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 D/ / 02/03/2018 11:28:05 Kings Rubi MD / dia Interpreting Provider: Kings Rubi MD Consult Discharge Plan - Plan Referrals: Matias Brasher, [facility] [Primary Care Provider] - (2) Hypertension Qualifiers: Qualified Code(s): I10 - Essential (primary) hypertension (3) Diabetes Qualifiers: Qualified Code(s): E11.9 - Type 2 diabetes mellitus without complications (5) Chronic headache Qualifiers: Qualified Code(s): R51 - Headache (6) Urinary tract infection Qualifiers: Qualified Code(s): N30.00 - Acute cystitis without hematuria
--- NOTE | 2018-02-03 13:55 | Neurology - Consult Note ---
<Clark Nazario - Last Filed: 02/03/18 15:21> Date of Encounter: 02/03/18 Time of Encounter: 13:30 Assessment and Plan (1) New onset seizure Status: Acute This is a first time seizure in a 47 yo woman. Unlikely to be epilepsy in origin. EEG did not show any epiletiform activity. MRI Brain showed area of encephalomalacia likely from prior infarct that could be a source of seizure focus. Labs did not show any evidence of a metabolic or toxic cause. UA was pos for barbiturates at [facility] but was given fioricet for prior headache. Currently on Keppra 1000mg BID and continue at dc till seen in follow up Code(s): R56.9 - Unspecified convulsions SNOMED Code(s): 26918424 History of Present Illness Chief complaint: Seizure like activity HPI: Ms. Javed is a 47 year old female with a PMH significant for HTN, DM, dyslipidemia, liver disease and bipolar disorder that's untreated. Neurology consulted for new onset seizures. She says she has had severe headaches for 2 weeks that she describes as pressure like pain in the L parietal region that's been constant. She admits to additional photophobia, orbital pain, redness and tearing and says that it has occasionally transferred to the R parietal region. She has been seen in the ED multiple times with additional neurological complaints and received workups that do not show a cause. Yesterday, she said her ARGUELLO was still present and started getting L arm numbness, then right hand numbness, then perioral numbness about 10 min before witnessed jerking like activity but no rigidity with her eyes rolled back by her daughter. She denied having any other prodromal symptoms besides that transient numbness and denies remembering the event. She arguello never had a seizure before. She denies any diplopia, blurry vision, seeing spots/lights, dizziness/lightheadedness, N/V, neck pain, postictal state, oral trauma, or loss of bladder/bowel function. She was transported by EMS to [facility] and while there had a second witnessed seizure without any prodromal neurological symptoms. This episode she had loss of bladder function and said she bit her tongue, she was given loading dose of Keppra and transferred here. Today, she denies any further seizures and ARGUELLO has mostly subsided. She does complain of dizziness now when going from sitting to standing that will last a few seconds. She denies any alcohol, benzo, or cocaine use, she does admit to anxiety and says her anxiety has been higher recently. UA pos for barbituates at [facility] but received fioricet for a prior ARGUELLO. She has had a medication change 2 weeks ago and was put on lyrica and then taken off after 1 week. 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, alkalizing spondalysis Psychiatric history: bipolar - Past Surgical History Surgical History: cholecystectomy, hysterectomy, orthopedic, other, other Additional surgical history: CARPEL TUNNEL SX, BLADDER SX - Social History Smoking Status: Current every day smoker Packs per day: 1 Smokeless Tobacco Status: No Alcohol use: occasionally Drug use: none - Family History Mother Adopted: [place]: NERY Family Member Ethnicity: Non- Living Status: Age at : 70 Cause of : CANCER Hx Family Cardiac Disorders: Yes Medications and Allergies Metoprolol [Lopressor] 100 mg PO BID 04/11/15 [History] Dulaglutide [Trulicity] 1.5 mg SQ SA 02/17/17 [History] Aspirin [Lo-Dose Aspirin EC] 81 mg PO DAILY 01/25/18 [History] Atorvastatin [Lipitor] 10 mg PO HS 01/25/18 [History] Losartan [Cozaar] 50 mg PO DAILY 01/25/18 [History] Omeprazole [PriLOSEC] 20 mg PO DAILY 01/25/18 [History] Pioglitazone [Actos] 15 mg PO 0800 01/25/18 [History] Acetaminophen/Butalbital/Caffe [Fioricet] 1 each PO DAILY #10 tablet 02/03/18 [ Rx] cephALEXin [Keflex] 500 mg PO BID #14 capsule 02/03/18 [Rx] levETIRAcetam [Roweepra] 1,000 mg PO BID #60 tablet 02/03/18 [Rx] 3 Allergy/AdvReac Type Severity Reaction Status Date / Time bupropion [From Wellbutrin] Allergy Confusion Verified 02/01/18 11:01 haloperidol [From Haldol] Allergy See Verified 02/02/18 18:02 Comments latex Allergy Blister Verified 02/01/18 11:01 quinapril [From Accupril] Allergy Palpitation Verified 02/01/18 11:01 s tramadol [From Ultram] Allergy Migraine Verified 02/01/18 11:01 ibuprofen AdvReac See Verified 02/01/18 11:01 Comments morphine AdvReac Palpitation Verified 02/01/18 11:01 s sulfamethoxazole AdvReac Nausea Verified 02/01/18 11:01 [From Bactrim] trimethoprim [From Bactrim] AdvReac Nausea Verified 02/01/18 11:01 All Systems: The remainder of the systems were reviewed and are negative Physical Examination - Vital Signs Vital Signs: Initial Vital Signs Temp Pulse Resp BP Pulse Ox 98.4 F 96 16 171/97 93 02/02/18 23:05 02/02/18 23:05 02/02/18 23:05 02/02/18 23:05 02/02/18 23:05 - Constitutional General appearance: comfortable - Neurologic Sensorimotor examination: intact Detailed motor examination: full strength in all major muscle groups Detailed sensory examination: intact (light touch, pain/temp, and vibratory sensation ) Reflex and gait examination: intact Mental Status Examination: awake, alert, oriented to person, oriented to place, oriented to time, follows commands appropriately, answers questions appropriately, no aphasia Cranial nerve examination: PERRL, EOMI, visual parrish intact, sensory to face intact, no facial asymmetry is present, no dysarthria, hearing is intact symmetrically, soft palate elevates bilaterally upon phonation, flexes SCM and trapezius muscles symmetrically with full power, tongue protrudes midline, no atrophy or facial fasiculations present Cerebellar examination: no dysmetria Results - Laboratory Findings CBC and BMP: 02/03/18 03:30 02/03/18 03:30 Abnormal lab findings: Abnormal lab results WBC 12.5 K/mcL (4.3-11.1) H 02/03/18 03:30 Carbon Dioxide 19 mEq/L (23-29) L 02/03/18 03:30 Creatinine 0.52 mg/dL (0.60-1.20) L 02/03/18 03:30 Glucose 148 mg/dL (70-105) H 02/03/18 03:30 POC Glucose 207 mg/dL (70-99) H 02/02/18 23:09 Hemoglobin A1c 9.5 % (-5.6) H 02/03/18 03:30 HDL Cholesterol 73 mg/dL (40-59) H 02/03/18 03:30 Consult Discharge Plan - Plan Instructions: Cephalexin (By mouth), Butalbital/Aspirin/Caffeine/Codeine (By mouth), Levetiracetam (By mouth), Urinary Tract Infection in Women (DC), Migraine Headache (DC), Epilepsy (DC) Referrals: Romero Lora DO [Partnered Physician] - 02/24/18 11:15 am (Please call the office if you have not heard from them within 2-3 weeks to schedule follow-up appointment) Matias Brasher CNP [Primary Care Provider] - 02/09/18 11:30 am (Please call for follow-up appointment within 1 week) Prescriptions: Acetaminophen/Butalbital/Caffe [Fioricet] 1 each PO DAILY #10 tablet cephALEXin [Keflex] 500 mg PO BID #14 capsule levETIRAcetam [Roweepra] 1,000 mg PO BID #60 tablet <Romero Lora - Last Filed: 02/03/18 16:27> Date of Encounter: 02/03/18 Time of Encounter: 16:20 Assessment and Plan (1) New onset seizure Status: Acute Ultimately, the patient does have an abnormal MRI which reveals an area of encephalomalacia in the right frontal region which is a residual of a previous cerebral infarct which occurred back in 2015. As far she knows the etiology for this event was never determined. I do not have records available to me from that previous assessment. His my suspicion that perhaps this area of encephalomalacia may present some cortical instability and decreased his seizure threshold under certain circumstances. Perhaps sleep deprivation and the urinary tract infection may have lowered the seizure threshold. I do not see any evidence of a central nervous system infectious process. The brain reveals no evidence of temporal lobe enhancement to acute cerebral infarct. The urinalysis was positive for barbiturates however she takes Fioricet for her headaches and was given Fioricet at [facility]. For now I would like to go ahead and maintain the Keppra 1000 mg twice a day. I have also recommended that she be discharged on the Fioricet to use as needed for headache and minus standing that she has migraine headaches feel far between. I will follow-up with her my office over the next week or so for ongoing care. The EEG was normal. However normal EEG does not preclude a diagnosis of seizure or epilepsy. History of Present Illness HPI: The chart was reviewed, showing was seen and examined independently. Ms. Javed is a 47 year old female seen for neurologic evaluation secondary to seizure-like activity with associated headache. I agree with Dr. Nazario's assessment as stated above. All Systems: The remainder of the systems were reviewed and are negative Review of Systems: The balance of the systems review is negative. Physical Examination - Vital Signs Vital Signs: Initial Vital Signs Temp Pulse Resp BP Pulse Ox 98.4 F 96 16 171/97 93 02/02/18 23:05 02/02/18 23:05 02/02/18 23:05 02/02/18 23:05 02/02/18 23:05 - Neurologic Detailed motor examination: full strength in all major muscle groups Motor examination - right side: 5/5: deltoids, biceps, triceps, wrist flexion, wrist extension, meatcutter, hip flexors, tibialis Anterior, quadriceps, toe extension (EHL), plantarflexion Motor examination - left side: 5/5: deltoids, biceps, triceps, wrist flexion, wrist extension, hip flexors, meatcutter, quadriceps, tibialis Anterior, toe extension (EHL), plantarflexion Mental Status Examination: awake, alert, oriented to person, oriented to place, oriented to time, follows commands appropriately, answers questions appropriately, no agnosia, no aphasia, no aproxia Cranial nerve examination: PERRL, EOMI, visual parrish intact, corneal reflexes brisk symmetrically, sensory to face intact, mastication intact, no facial asymmetry is present, no dysarthria, hearing is intact symmetrically, soft palate elevates bilaterally upon phonation, gag reflex intact, flexes SCM and trapezius muscles symmetrically with full power, tongue protrudes midline, no atrophy or facial fasiculations present Cerebellar examination: no dysmetria, performs finger to nose and heel to smith symmetrically without ataxia, no gait ataxia, no truncal ataxia, no difficulty with rapid alternating movements Results - Laboratory Findings CBC and BMP: 02/03/18 03:30 02/03/18 03:30 Abnormal lab findings: Abnormal lab results WBC 12.5 K/mcL (4.3-11.1) H 02/03/18 03:30 Carbon Dioxide 19 mEq/L (23-29) L 02/03/18 03:30 Creatinine 0.52 mg/dL (0.60-1.20) L 02/03/18 03:30 Glucose 148 mg/dL (70-105) H 02/03/18 03:30 POC Glucose 207 mg/dL (70-99) H 02/02/18 23:09 Hemoglobin A1c 9.5 % (-5.6) H 02/03/18 03:30 HDL Cholesterol 73 mg/dL (40-59) H 02/03/18 03:30
--- NOTE | 2018-02-03 14:45 | EEG/EMG/Oth Biometrics Report ---
EEG Procedure Report Date of procedure: 02/03/18 EEG Procedure: Routine EEG Procedure Note: This is a report of a 21 channel bipolar and referential montage EEG. A posterior dominant rhythm of 10 Hz moderate voltage alpha frequencies identified symmetrically in the posterior head region. This rhythm attenuates symmetrically with eye opening. Hyperventilation is not performed during the recording. Periods of drowsiness and stage II sleep are identified as reference by dropout of the posterior dominant rhythm and emergence of vertex activity K complexes and sleep spindles. Photic stimulation is performed and does not produce a driving response. The EKG rhythm strip shows normal sinus rhythm at 84 bpm. Impressions: This EEG recording is within normal limits. There is no evidence of epileptiform activity identified during the study. Comment: A normal EEG does not preclude a diagnosis of seizure or epilepsy. If the clinical suspicion for seizure activity is high, serial EEGs or perhaps a prolonged recording may increase the yield. Please correlate clinically.
[2018-02-03 14:49] VITALS: BP 148/80
--- NOTE | 2018-02-03 15:36 | Discharge Summary ---
Orders not resulted at time of discharge: Pending orders Date of Encounter: 02/03/18 Time of Encounter: 15:33 - Discharge Diagnosis (1) New onset seizure Priority: Primary Status: Inactive (2) Hypertension Priority: Secondary Status: Chronic Qualifiers: Hypertension type: essential hypertension Qualified Code(s): I10 - Essential (primary) hypertension (3) Diabetes Priority: Secondary Status: Chronic Qualifiers: Diabetes mellitus type: type 2 Diabetes mellitus director long term care insulin use: without director long term care use Diabetes mellitus complication status: without complication Qualified Code(s): E11.9 - Type 2 diabetes mellitus without complications (4) Tobacco abuse Priority: Secondary Status: Chronic (5) Chronic headache Priority: Primary Status: Inactive Qualifiers: Headache type: unspecified Intractability: intractable Qualified Code(s) : R51 - Headache (6) Urinary tract infection Priority: Primary Status: Acute Qualifiers: Urinary tract infection type: acute cystitis Hematuria presence: without hematuria Qualified Code(s): N30.00 - Acute cystitis without hematuria Hospital course: Ms. Javed is a 47 year old female with PMH CVA, migraines, , asthma, diabetes, hypertension and bipolar presented to [facility] on 02/03/2018 with concern for seizure activity. She was placed in observation status for further workup and treatment. Outside hospital head CT unremarkable. Brain MRI with evidence of old CVA with residual encephalomalacia in the right frontal region. She was evaluated by neurology who suspected the area encephalomalacia possibly causing some cortical instability and therefore decreasing seizure threshold. Patient also had suspected UTI and reported increased stressors at home. EEG without evidence of seizure activity. No seizure recurrence while inpatient and patient requested discharge home. She was discharged home on Keppra for seizures and Fioricet for migraines per neurology recommendations. She is also discharged home on Keflex for suspected UTI. She was advised to return to ER if seizure activity recurred. Follow-up with neurology outpatient. Discharge discussed with: patient - Time Spent with Patient Total time spent providing and/or coordinating discharge services: - Discharge Medications Prescriptions: Acetaminophen/Butalbital/Caffe [Fioricet] 1 each PO DAILY #10 tablet cephALEXin [Keflex] 500 mg PO BID #14 capsule Home Medications: Metoprolol [Lopressor] 100 mg PO BID 04/11/15 [History] Aspirin [Lo-Dose Aspirin EC] 81 mg PO DAILY 01/25/18 [History] Losartan [Cozaar] 50 mg PO DAILY 01/25/18 [History] Omeprazole [PriLOSEC] 20 mg PO DAILY 01/25/18 [History] Acetaminophen/Butalbital/Caffe [Fioricet] 1 each PO DAILY #10 tablet 02/03/18 [ Rx] cephALEXin [Keflex] 500 mg PO BID #14 capsule 02/03/18 [Rx] Atorvastatin Calcium [Lipitor] 20 mg PO QPM 02/08/18 [History] Dulaglutide [Trulicity] 0.75 mg PO QWEEK 02/08/18 [History] Ibuprofen [Ibu] 800 mg PO Q8H PRN 02/08/18 [History] LevETIRAcetam [Keppra] 1,000 mg PO BID 02/08/18 [History] Pioglitazone HCl [Actos] 30 mg PO DAILY 02/08/18 [History] Solifenacin Succinate [Vesicare] 10 mg PO DAILY 02/08/18 [History] ALPRAZolam [Xanax 0.25 MG Tablet] 0.25 mg PO DAILY PRN 10 Days #10 tablet [Rx] Sertraline [Zoloft] 50 mg PO DAILY #30 tablet 02/10/18 [Rx] Topiramate [Topamax] 25 mg PO BID #60 tablet 02/10/18 [Rx] Allergies/Adverse Reactions: 3 Allergy/AdvReac Type Severity Reaction Status Date / Time bupropion [From Wellbutrin] Allergy Confusion Verified 02/13/18 17:53 haloperidol [From Haldol] Allergy See Verified 02/13/18 17:53 Comments latex Allergy Blister Verified 02/13/18 17:53 quinapril [From Accupril] Allergy Palpitation Verified 02/13/18 17:53 s tramadol [From Ultram] Allergy Migraine Verified 02/13/18 17:53 ibuprofen AdvReac See Verified 02/13/18 17:53 Comments morphine AdvReac Palpitation Verified 02/13/18 17:53 s sulfamethoxazole AdvReac Nausea Verified 02/13/18 17:53 [From Bactrim] trimethoprim [From Bactrim] AdvReac Nausea Verified 02/13/18 17:53 Date of admission: 02/03/18 13:51 Primary care physician: Matias Brasher CNP Consults: 02/03/18 00:10 Consult to Neurology [CONS] Routine Consulting Provider: Neurology [facility] Reason for Consult: new onset seizure activity Call Completed: No 02/03/18 11:58 Consult to Interpret Exam [CONS] Routine Consulting Provider: Zayda Hall I Consult to Interpret Exam: Interpret EEG Discharging clinician: Vee Herzog Anticipated date of discharge: 02/03/18 - Constitutional Vitals: Temp Pulse Resp BP Pulse Ox 97.9 F 89 17 148/80 98 02/03/18 14:48 02/03/18 14:48 02/03/18 14:48 02/03/18 14:48 02/03/18 14:48 General appearance: Present: A&O X 3, morbidly obese, pleasant, no acute distress - Head Head exam: Present: atraumatic, normocephalic - Eye Eye exam: Present: PERRL, conjuntiva pink, sclera anicteric Pupils: Present: PERRL - Neck Neck exam general surgery: Present: supple, trachea midline. Absent: lymphadenopathy - Respiratory Respiratory exam: Present: CTAB. Absent: accessory muscle use, rales, rhonchi, wheezes - Cardiovascular Cardiovascular exam: Present: RRR, +S1, +S2. Absent: diastolic murmur, gallop, rubs, systolic murmur - GI/Abdominal GI/Abdominal exam: Present: normal bowel sounds, soft, no peritoneal signs. Absent: distended, tenderness - Extremities Exam Extremities exam: Present: warm, radial pulses palpable and symmetrical. Absent : calf tenderness, cyanotic, pedal edema - Neurological Exam Neurological exam: Present: CN II-XII intact, oriented X3, no focal deficits. Absent: pronater drift, facial droop, speech deficit - Skin Skin exam: Present: dry, intact - Patient Status Disposition: Home, Self-Care Condition: Good Functional capacity at discharge: independent ambulation Overall status at discharge: patient is back to baseline - Discharge Instructions Instructions: Cephalexin (By mouth), Butalbital/Aspirin/Caffeine/Codeine (By mouth), Levetiracetam (By mouth), Urinary Tract Infection in Women (DC), Migraine Headache (DC), Epilepsy (DC) Follow Up With: Romero Lora DO [Partnered Physician] - 02/24/18 11:15 am (Please call the office if you have not heard from them within 2-3 weeks to schedule follow-up appointment) Matias Brasher CNP [Primary Care Provider] - 02/09/18 11:30 am (Please call for follow-up appointment within 1 week) - Diet and Activity Activity: increase activity as tolerated Diet: advance to your usual diet
== END 2018-02-03 16:09 | disposition home or self-care (01) | DRG 53 ==
LOC: 3BNU
PROVIDERS: ADMIT Internal Medicine; ATTEND Internal Medicine

== ENCOUNTER 2018-02-08 10:00 | Observation (INO) ==
[2018-02-08 10:33] LABS: Bilirubin,Urine Negative (Negative); Blood,Urine Negative (Negative); Clarity,Urine Clear (Clear); Color,Urine Yellow (Yellow); Glucose,Urine (UA) Normal (Normal); Ketones,Urine Negative (Negative); Leukocyte Esterase,Urine Negative (Negative); Nitrite,Urine Negative (Negative); PH,Urine 6.5 pH Units (5.0-8.0); Protein,Urine Negative (Neg-Trace); Specific Gravity,Urine 1.009 (1.010-1.025); Urobilinogen,Urine Normal (Normal)
[2018-02-08 10:41] LABS: Hematocrit 47.5 % (35.3-44.9); Mean Corpuscular HGB Conc 33.7 g/dL (31.6-35.5); Mean Corpuscular Hemoglobin 31.5 pg (28.0-33.3); Mean Corpuscular Volume 93.5 fL (83.0-100.0); Mean Platelet Volume 10.7 fL (9.4-12.4); Platelet Count 266 K/mcL (140-400); Red Blood Count 5.08 M/mcL (3.82-4.97); Red Cell Distribution Width 11.9 % (11.5-14.5)
--- NOTE | 2018-02-08 10:48 | Emergency Department Note ---
Disposition Clinical Impression: TIA (transient ischemic attack) Diabetes mellitus with hyperglycemia Qualifiers: Diabetes mellitus type: type 2 Diabetes mellitus skilled nursing insulin use: without termite treater helper use Qualified Code(s): E11.65 - Type 2 diabetes mellitus with hyperglycemia Disposition: Admitted As Inpatient Condition: Fair Referrals: Matias Brasher CNP [Primary Care Provider] - Time of Disposition: 12:02 Altered Mental Status HPI - General Chief Complaint: ED Altered Mental Status Stated Complaint: right sided numbness Time Seen by Provider: 02/08/18 10:07 Nursing Notes Reviewed: Yes Vital Signs Reviewed: Yes - History of Present Illness HPI Narrative: I did review the patient's previous record and did see her immediately upon arrival and also spoke with the paramedics and the story is that she has had intermittent headaches for the last 2 weeks rotating between the left side of the head and the right side of the head and did wake up with a headache around 4 :00 in the morning with left arm numbness which then moved over to become right arm numbness. There is no weakness of the extremities. No paresthesias of the lower extremities. No slurred speech or facial droop however the patient did have confusion as evidenced by the fact that she did not remember how to make coffee her how to flush the toilet. She is here with her daughter who helps with the history. The patient states the headache pain is constant and sharp last 2 weeks but intermittently worse. There is no fever or skin rash. Did have some rhinorrhea last night but none today. No cough or sneeze. No blurred vision. No blood in the urine or stool. No skin rash but does have a slight bruise just under the umbilicus in the abdomen. Social history: Smoker, no alcohol or drugs. Patient does have a history of strokes but also has a history of seizures and does get the arm numbness after her seizures but does not remember recurrent seizure/recent seizure - Related Data Home Medications Medication Instructions Recorded Confirmed Metoprolol [Lopressor] 100 mg PO BID 04/11/15 02/08/18 Aspirin [Lo-Dose Aspirin EC] 81 mg PO DAILY 01/25/18 02/08/18 Losartan [Cozaar] 50 mg PO DAILY 01/25/18 02/08/18 Omeprazole [PriLOSEC] 20 mg PO DAILY 01/25/18 02/08/18 Atorvastatin Calcium [Lipitor] 20 mg PO QPM 02/08/18 02/08/18 Dulaglutide [Trulicity] 0.75 mg PO QWEEK 02/08/18 02/08/18 Ibuprofen [Ibu] 800 mg PO Q8H PRN 02/08/18 02/08/18 Pioglitazone HCl [Actos] 30 mg PO DAILY 02/08/18 02/08/18 Solifenacin Succinate [Vesicare] 10 mg PO DAILY 02/08/18 02/08/18 Previous Rx's Medication Instructions Recorded Acetaminophen/Butalbital/Caffe 1 each PO DAILY #10 tablet 02/03/18 [Fioricet] cephALEXin [Keflex] 500 mg PO BID #14 capsule 02/03/18 levETIRAcetam [Roweepra] 1,000 mg PO BID #60 tablet 02/03/18 Allergies Allergy/AdvReac Type Severity Reaction Status Date / Time bupropion [From Wellbutrin] Allergy Confusion Verified 02/01/18 11:01 haloperidol [From Haldol] Allergy See Verified 02/02/18 18:02 Comments latex Allergy Blister Verified 02/01/18 11:01 quinapril [From Accupril] Allergy Palpitation Verified 02/01/18 11:01 s tramadol [From Ultram] Allergy Migraine Verified 02/01/18 11:01 ibuprofen AdvReac See Verified 02/01/18 11:01 Comments morphine AdvReac Palpitation Verified 02/01/18 11:01 s sulfamethoxazole AdvReac Nausea Verified 02/01/18 11:01 [From Bactrim] trimethoprim [From Bactrim] AdvReac Nausea Verified 02/01/18 11:01 All systems ED: reviewed and negative except as stated. 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 EYES: PERRL, EOMI, no scleral icterus NOSE: The nose is normal in appearance without rhinorrhea NECK: Supple without rigidity, no JAMES RESP: Normal chest excursion with respiration; breath sounds clear and equal bilaterally; no wheezes, rhonchi, or rales CARD: Regular rhythm, without murmurs, rub or gallop ABD: Non-distended; non-tender, soft, without rigidity, rebound or guarding SKIN: Normal for age and race; warm and dry; no apparent lesions, no rash NEUROLOGICAL: Patient is alert and oriented times three. Cranial nerves III- XII are intact except for minimally decreased sensation over the left anabaptist area . Sensory and motor functions are intact. Strength is 5/5 for flexion and extension in all 4 extremities. Finger to nose testing is equal and normal bilaterally. Course Vital Signs Temperature 98.6 F 02/08/18 10:03 Pulse Rate 80 02/08/18 10:03 Respiratory Rate 13 02/08/18 10:03 Blood Pressure 168/85 02/08/18 10:03 O2 Sat by Pulse Oximetry 94 02/08/18 10:03 Temperature 98.6 F 02/08/18 10:03 Pulse Rate 77 02/08/18 12:13 Respiratory Rate 16 02/08/18 12:13 Blood Pressure 180/95 02/08/18 12:13 O2 Sat by Pulse Oximetry 95 02/08/18 12:13 Oxygen Delivery Oxygen Delivery Room Air Altered Mental Status - MDM Narrative Medical decision making narrative: The patient's symptoms are more consistent with chronic headache, possible seizure although there is no bite gabriel evident on the tongue and no gross evidence of urinary incontinence and certainly acute stroke is extremely unlikely with 2 week history of headache and 2 week history of intermittent numbness of the upper extremities. Head CT, labs, EKG will be done with the workup. Her EKG does show normal sinus rhythm with rate of 76 without acute ischemic changes or evidence of arrhythmia. Additional studies pending. Labs within normal limits except elevated BS 1123 I did speak with the hospitalist who accepts the patient for admission for evaluation of possible TIA. She did ask that I call neurology and I will discuss further with them. At this point the patient is not a thrombolytic candidate due to prolonged duration of symptoms and extremely low stroke scale. She did pass her swallow study will receive 1 g of Tylenol for her headache 1159 I did speak with Romero Lora who agrees with the care plan and he will consult 1205 I did go in and speak again with the patient and the family and answer questions and The diagnosis and they are comfortable with the disposition plan 1220 - Medical Records Medical records reviewed: Yes I reviewed the patient's medical records. - Lab Data Lab results reviewed: Yes I reviewed the patient's lab results. Result diagrams: 02/08/18 10:26 02/08/18 10:26 Lab Results 02/08/18 02/08/18 02/08/18 Range/Units 10:19 10:26 10:26 WBC 9.4 (4.3-11.1) K/mcL RBC 5.08 H (3.82-4.97) M/mcL Hgb 16.0 H (11.5-15.4) g/dL Hct 47.5 H (35.3-44.9) % MCV 93.5 (83.0-100.0) fL MCH 31.5 (28.0-33.3) pg MCHC 33.7 (31.6-35.5) g/dL RDW 11.9 (11.5-14.5) % Plt Count 266 (140-400) K/mcL MPV 10.7 (9.4-12.4) fL Sodium 137 (136-145) mEq/L Potassium 4.2 (3.5-5.1) mEq/L Chloride 103 (98-107) mEq/L Carbon Dioxide 28 (23-29) mEq/L BUN 7 (6-20) mg/dL Creatinine 0.56 L (0.60-1.20) mg/dL Est GFR ( Amer) > 60 (> 60) Est GFR (Non-Af Amer) > 60 (> 60) BUN/Creatinine Ratio 13 (6-26) Glucose 263 H (70-105) mg/dL Calculated Osmolality 291 (280-300) Calcium 9.3 (8.6-10.3) mg/dL Troponin I < 0.03 (< 0.04) ng/mL Urine Color Yellow (Yellow) Urine Clarity Clear (Clear) Urine pH 6.5 (5.0-8.0) pH Units Ur Specific [place] 1.009 L (1.010-1.025) Urine Protein Negative (Neg-Trace) mg/dL Urine Glucose (UA) Normal (Normal) mg/dL Urine Ketones Negative (Negative) mg/dL Urine Blood Negative (Negative) Urine Nitrite Negative (Negative) Urine Bilirubin Negative (Negative) Urine Urobilinogen Normal (Normal) mg/dL Ur Leukocyte Esterase Negative (Negative) - Radiology Data Radiology results reviewed: Yes I reviewed the patient's radiology results. TPA Checklist - LKW: 3-4.5 hrs Add. Warnings/Precautions Patient/family understanding: The patient/family members have been counseled and understood the risk, benefit , and alternatives of treatment. Critical Care Time Critical Care Time: No NIH Stroke Scale - Level of Consciousness LOC: Alert - LOC Questions LOC Questions: Answers both correctly - LOC Commands LOC Commands: Performs both correctly - Best Gaze Best Gaze: Normal - Visual Visual: No visual loss - Facial Palsy Facial Palsy: Normal - Motor Arms Motor Arm-Left: No drift for 10 seconds Motor Arm-Right: No drift for 10 seconds - Motor Legs Motor Leg-Left: No drift for 5 seconds Motor Leg-Right: No drift for 5 seconds - Limb Ataxia Limb Ataxia: Normal, No Ataxia - Sensory Sensory: Mild to moderate loss, "not as sharp" - Best Language Best Language: No aphasia - Dysarthria Dysarthria: Normal - Extinction and Inattention Extinction and Inattention: Normal - NIHSS Total Score NIHSS Total Score: 1
[2018-02-08 10:57] LABS: BUN/Creatinine Ratio 13 (6-26); Blood Urea Nitrogen 7 mg/dL (6-20); Calcium 9.3 mg/dL (8.6-10.3); Carbon Dioxide 28 mEq/L (23-29); Chloride 103 mEq/L (98-107); Glucose 263 mg/dL (70-105); Osmolality,Calculated 291 (280-300); Potassium 4.2 mEq/L (3.5-5.1); Sodium 137 mEq/L (136-145); Troponin I < 0.03 ng/mL (< 0.04); eGFR For Non-African Americans > 60 (> 60)
[2018-02-08] MEDS ORDERED: Ketorolac 15 MG/ML VIAL IM ONE (12:51)
[2018-02-08] MEDS ORDERED: (Dulaglutide [Trulicity] 0.75 MG) SQ SCH (13:00)
[2018-02-08] MEDS ORDERED: Prochlorperazine 10 MG/2 ML VIAL IVP ONE (13:00)
[2018-02-08] MEDS ORDERED: Ketorolac 30 MG/ML VIAL IVP ONE (13:10)
[2018-02-08] MEDS ORDERED: Nicotine 14 MG PATCH.TD24 TD SCH (14:00)
[2018-02-08] MEDS ORDERED: Dextrose Gel 15 GM/37.5 ML TUBE PO PRN ×2 (14:16)
[2018-02-08] MEDS ORDERED: D5% in Water 1,000 ML IVC PRN (14:16)
[2018-02-08] MEDS ORDERED: *HR* Dextrose 50 % in Water (Syg) 50 ML SYRINGE IVP PRN (14:16)
--- NOTE | 2018-02-08 14:22 | Internal Med History&Physical ---
<Bess Hood Manjit - Last Filed: 02/08/18 17:26> Date of Encounter: 02/08/18 Time of Encounter: 14:22 Internal Medicine - H&P: HPI Chief complaint: Right-sided numbness Admitted From: Home Plans for Post Hospital Care: Home History of present illness: Ms. Javed is a 47 year old female with history of seizures, stroke, bipolar, DM , syncope, and HTN. The patient here after having a reported ARGUELLO for the past 2 weeks. The patient also noted some right sided weakness and confusion. The patient had a recent admission due to having seizures. She was started on levETIRAcetam on 02/03/2018 for seizures during that time. Ct of head showed no acute abnormalities. There was a old cva noted. She indicated ARGUELLO, and was given a ARGUELLO cocktail. The patient was currently moving about in the bed stating she can 't take toradol. Apparently the patient was talking about haldol and thought she had received that. She began thrashing around the bed stating the med was bothering her right leg. Pedal pulses + and present. Skin equally warm to both legs. The patient was alert and oriented x3. Neurology was consulted in the ED. A psych consult was placed due to the nature of the patient's behavior. The patient has history of bipolar disease. Family also reported issues with elevated blood sugars at home. Currently 263. Bp uncontrolled on arrival. 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, alkalizing spondalysis Psychiatric history: bipolar - Past Surgical History Surgical History: cholecystectomy, hysterectomy, orthopedic, other, other Additional surgical history: carpal tunnel - Social History Smoking Status: Current every day smoker Packs per day: 1 Smokeless Tobacco Status: No Alcohol use: occasionally Drug use: none - Family History Mother Adopted: No Family Member Ethnicity: Non- Living Status: Hx Family Cardiac Disorders: Yes Internal Medicine - H&P: Meds Metoprolol [Lopressor] 100 mg PO BID 04/11/15 [History] Aspirin [Lo-Dose Aspirin EC] 81 mg PO DAILY 01/25/18 [History] Losartan [Cozaar] 50 mg PO DAILY 01/25/18 [History] Omeprazole [PriLOSEC] 20 mg PO DAILY 01/25/18 [History] Acetaminophen/Butalbital/Caffe [Fioricet] 1 each PO DAILY #10 tablet 02/03/18 [ Rx] cephALEXin [Keflex] 500 mg PO BID #14 capsule 02/03/18 [Rx] Atorvastatin Calcium [Lipitor] 20 mg PO QPM 02/08/18 [History] Dulaglutide [Trulicity] 0.75 mg PO QWEEK 02/08/18 [History] Ibuprofen [Ibu] 800 mg PO Q8H PRN 02/08/18 [History] LevETIRAcetam [Keppra] 1,000 mg PO BID 02/08/18 [History] Pioglitazone HCl [Actos] 30 mg PO DAILY 02/08/18 [History] Solifenacin Succinate [Vesicare] 10 mg PO DAILY 02/08/18 [History] 3 Allergy/AdvReac Type Severity Reaction Status Date / Time bupropion [From Wellbutrin] Allergy Confusion Verified 02/01/18 11:01 haloperidol [From Haldol] Allergy See Verified 02/02/18 18:02 Comments latex Allergy Blister Verified 02/01/18 11:01 quinapril [From Accupril] Allergy Palpitation Verified 02/01/18 11:01 s tramadol [From Ultram] Allergy Migraine Verified 02/01/18 11:01 ibuprofen AdvReac See Verified 02/01/18 11:01 Comments morphine AdvReac Palpitation Verified 02/01/18 11:01 s sulfamethoxazole AdvReac Nausea Verified 02/01/18 11:01 [From Bactrim] trimethoprim [From Bactrim] AdvReac Nausea Verified 02/01/18 11:01 All Systems PM: A 10-system review of systems was performed and is negative for pertinent findings except as documented above in the HPI. - Constitutional Constitutional: no chills, no fever(s), no night sweats - EENT Eyes: no change in vision, no discharge, no pain, no photophobia Ears: no ear discharge, no ear pain, no tinnitus Nose, mouth and throat: no dysphagia, no nasal discharge, no neck pain, no sore throat - Cardiovascular Cardiovascular ROS IM: no chest pain, no diaphoresis, no dyspnea, no lightheadedness, no palpitations, no syncope - Respiratory Respiratory: no cough, no dyspnea, no wheezing, no excessive phlegm production - Gastrointestinal Gastrointestinal: no abdominal pain, no diarrhea, no hematemesis, no hematochezia, no melena, no nausea, no vomiting - Genitourinary Genitourinary: no change in urinary stream, no dysuria, no flank pain, no hematuria - Musculoskeletal Musculoskeletal ROS IM: no numbness, no tingling - Integumentary Integumentary IM: no rash, no unusual bruising - Neurological Neurological ROS: confusion, headache(s), no convulsions, no focal weakness, no numbness, no tingling, no tremor(s) - Psychiatric Psychiatric: confusion, difficulty concentrating, other (agitation) - Hematologic/Lymphatic Hematologic/Lymphatic: no easy bruising - Constitutional Vitals: Temp Pulse Resp BP Pulse Ox 98.6 F 79 16 145/92 95 02/08/18 13:10 02/08/18 13:10 02/08/18 13:10 02/08/18 13:10 02/08/18 13:10 General appearance: Present: A&O X 3, answers questions appropriately - Head Head exam: Present: atraumatic, normocephalic - Eye Eye exam: Present: PERRL, conjuntiva pink, sclera anicteric Pupils: Present: PERRL - Neck Neck exam general surgery: Present: supple, trachea midline. Absent: lymphadenopathy - Respiratory Respiratory exam: Present: CTAB. Absent: accessory muscle use, rales, rhonchi, wheezes - Cardiovascular Cardiovascular exam: Present: RRR, +S1, +S2. Absent: diastolic murmur, gallop, rubs, systolic murmur - GI/Abdominal GI/Abdominal exam: Present: normal bowel sounds, soft, no peritoneal signs. Absent: distended, tenderness - Extremities Exam Extremities exam: Present: warm, radial pulses palpable and symmetrical. Absent : calf tenderness, cyanotic, pedal edema - Neurological Exam Neurological exam: Present: CN II-XII intact, oriented X3, no focal deficits, strengths equal and symetr throughout. Absent: pronater drift, facial droop, speech deficit - Skin Skin exam: Present: dry, intact Internal Med - H&P Results - Labs CBC & Chem 7: 02/08/18 10:26 08/08/18 10:26 - Assessment and plan (1) TIA (transient ischemic attack) Current Visit: Yes Status: Suspected Assessment and plan: Possible TIA. Patient has hx of seizure activity. But did not recall any seizures lately. Ct was neg for acute abnormality Neuro checks q shift Neurology Consult (2) Chronic headache Current Visit: Yes Status: Acute Assessment and plan: Patient was given a ARGUELLO cocktail with ultimate good effect. Neurology was consulted by ED Will add acetaminophen prn Qualifiers: Headache type: unspecified Intractability: not intractable Qualified Code (s): R51 - Headache (3) Hypertension Current Visit: No Status: Chronic Assessment and plan: Bp uncontrolled. The patient indicated she took antihypertensive med this am. Continue home bp medications Qualifiers: Hypertension type: essential hypertension Qualified Code(s): I10 - Essential (primary) hypertension (4) History of seizure Current Visit: No Status: Chronic Assessment and plan: Appears to be controlled at this time. Seizure precautions continue levETIRAcetam as prescribed Neurology consult (5) Diabetes mellitus with hyperglycemia Current Visit: Yes Status: Chronic Assessment and plan: The patient blood glucose is uncontrolled at 263. The patient will start on moderate scale humalog coverage AC/HS blood sugars Qualifiers: Diabetes mellitus type: type 2 Diabetes mellitus lobsterman insulin use: without lobsterman use Qualified Code(s): E11.65 - Type 2 diabetes mellitus with hyperglycemia - Time Spent With Patient Total time spent is greater than 50% in coordination of care (as documented) at patient's floor/unit and/or counseling patient: <Marlena Alexander O - Last Filed: 02/08/18 20:01> Date of Encounter: 02/08/18 Internal Medicine - H&P: HPI Admitted From: Home Plans for Post Hospital Care: Home History of present illness: Ms. Javed is a 47 year old female with past medical hx of Bipolar disorder but is not currently on medication. Pt states she might need to be on Xanax but states she has not been on it for about 3 to 4 years. Pt denies being on chronic pain medication. ARGUELLO much improved following Toradol, Compazine and benadryl trial. Neurology to see. All Systems PM: A 10-system review of systems was performed and is negative for pertinent findings except as documented above in the HPI. - Constitutional Vitals: Temp Pulse Resp BP Pulse Ox 98.6 F 79 16 145/92 95 02/08/18 13:10 02/08/18 13:10 02/08/18 13:10 02/08/18 13:10 02/08/18 13:10 Internal Med - H&P Results - Labs CBC & Chem 7: 02/08/18 10:26 02/08/18 10:26 - Attending Attestation I performed a history and physical exam of the patient and discussed his management with the REPRESENTATIVE GOVERNMENT RELATIONS. I reviewed the REPRESENTATIVE GOVERNMENT RELATIONS's note and agree with the documented findings and plan of care. - Time Spent With Patient Total time spent is greater than 50% in coordination of care (as documented) at patient's floor/unit and/or counseling patient: 25 - 35 minutes
[2018-02-08] MEDS ORDERED: Acetaminophen/Butalbital/CaffeineTABLET PO PRN (15:41)
[2018-02-08] MEDS: Insulin LISPRO 300 UNITS/3 ML VIAL SQ SCH (16:30)
--- NOTE | 2018-02-08 17:21 | Electrocardiograph Report ---
[address] [place] [address] Test Date: 2018-02-08 Pat Name: Елена Javed Department: 103 Room: 3A11 Gender: F Beader: YOUSUF : 1970 Requested By: Romero Diaz Order Number: [id number] Reading MD: Bar Huff Measurements Intervals [place] Rate: 76 P: 47 WV: 206 QRS: 53 QRSD: 102 T: 58 QT: 389 QTc: 419 Interpretive Statements SINUS RHYTHM POSSIBLE INFERIOR MYOCARDIAL INFARCTION, PROBABLY OLD Electronically Signed On 02-08-2018 17:19:15 EDT by Bar Huff
--- NOTE | 2018-02-08 18:03 | Neurology - Consult Note ---
Date of Encounter: 02/08/18 Time of Encounter: 17:57 Assessment and Plan (1) Intractable headache Current Visit: Yes Status: Acute It seems that Елена has poorly controlled hypertension. Perhaps this is a major cause of her headaches. I looked over the last admission and she had several blood pressure readings that were in the 190s and 180s systolic. I am not absolutely convinced that she truly has epilepsy. I believe that she has poorly controlled anxiety and the episode that she experienced in the ED was panic attack. She is very preoccupied with the paresthesias in her hands. I tried to reassure her that this is likely secondary to carpal tunnel versus neuropathy associated with diabetes. I am not convinced however that her ongoing problems are truly due to a primary neurologic etiology. Other issues to consider memory the medical noncompliance, analgesic rebound headache due to medication overuse. I really do not get the sense that she is drug seeking however it is a possibility. She bring her pillbox with her and it is filled with pills. I will recommend maintaining Keppra at 1000 twice a day. I will check a urine drug screen and a Keppra level. I recommended that she should not take the Fioricet anymore. I also recommend starting her on Topamax 25 mg daily for headache prevention. I recommend that she is a combination of Phenergan and Benadryl for migraine headache rescue therapy. No further imaging or other neurologic testing is necessary. I strongly recommend that she get with her primary care provider for frequent follow-up of her uncontrolled hypertension, and anxiety. Qualifiers: Qualified Code(s): R51 - Headache History of Present Illness HPI: The chart was reviewed, the patient was seen and examined. Ms. Javed is a 47 year old female who is previously known to me for an admission about a week or so ago under similar circumstances. Apparently today she had some type of episode in the ER where she was thrashing in bed and complained of pain in the right leg. She also complains of significant headache. She complains of paresthesias of both hands. 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 Upon admission today her blood pressure was 180/95. She has had several admissions over the last 2 years or so. Most of these admissions were associated with some type of pain. She is also had elevated blood pressure with many of these admissions. With her last admission I thought perhaps she might have had a seizure as a result of the scarring in the right frontal region of the brain from the old CVA. I therefore empirically started her on Keppra. She informed me that she continues to have headaches nearly daily. However she is been taking Fioricet several times daily since she was discharged from the hospital when she was last here on 02/03/2018. Prior to that she was taking ibuprofen frequently for headaches. Currently she is back to her normal baseline. She was last here she had an extensive workup including a CTA of the brain and CTA of the neck. Motor study revealed evidence of significant occlusion of any artery. 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, alkalizing spondalysis Psychiatric history: bipolar - Past Surgical History Surgical History: cholecystectomy, hysterectomy, orthopedic, other, other Additional surgical history: carpal tunnel - Social History Smoking Status: Current every day smoker Packs per day: 1 Smokeless Tobacco Status: No Alcohol use: occasionally Drug use: none - Family History Mother Adopted: No Family Member Ethnicity: Non- Living Status: Hx Family Cardiac Disorders: Yes Medications and Allergies Metoprolol [Lopressor] 100 mg PO BID 04/11/15 [History] Aspirin [Lo-Dose Aspirin EC] 81 mg PO DAILY 01/25/18 [History] Losartan [Cozaar] 50 mg PO DAILY 01/25/18 [History] Omeprazole [PriLOSEC] 20 mg PO DAILY 01/25/18 [History] Acetaminophen/Butalbital/Caffe [Fioricet] 1 each PO DAILY #10 tablet 02/03/18 [ Rx] cephALEXin [Keflex] 500 mg PO BID #14 capsule 02/03/18 [Rx] Atorvastatin Calcium [Lipitor] 20 mg PO QPM 02/08/18 [History] Dulaglutide [Trulicity] 0.75 mg PO QWEEK 02/08/18 [History] Ibuprofen [Ibu] 800 mg PO Q8H PRN 02/08/18 [History] LevETIRAcetam [Keppra] 1,000 mg PO BID 02/08/18 [History] Pioglitazone HCl [Actos] 30 mg PO DAILY 02/08/18 [History] Solifenacin Succinate [Vesicare] 10 mg PO DAILY 02/08/18 [History] 3 Allergy/AdvReac Type Severity Reaction Status Date / Time bupropion [From Wellbutrin] Allergy Confusion Verified 02/01/18 11:01 haloperidol [From Haldol] Allergy See Verified 02/02/18 18:02 Comments latex Allergy Blister Verified 02/01/18 11:01 quinapril [From Accupril] Allergy Palpitation Verified 02/01/18 11:01 s tramadol [From Ultram] Allergy Migraine Verified 02/01/18 11:01 ibuprofen AdvReac See Verified 02/01/18 11:01 Comments morphine AdvReac Palpitation Verified 02/01/18 11:01 s sulfamethoxazole AdvReac Nausea Verified 02/01/18 11:01 [From Bactrim] trimethoprim [From Bactrim] AdvReac Nausea Verified 02/01/18 11:01 All Systems: The remainder of the systems were reviewed and are negative Review of Systems: The balance of the systems review is negative. Physical Examination - Vital Signs Vital Signs: Initial Vital Signs Temp Pulse Resp BP Pulse Ox 98.6 F 80 13 168/85 94 02/08/18 10:03 02/08/18 10:03 02/08/18 10:03 02/08/18 10:03 02/08/18 10:03 - Neurologic Detailed motor examination: full strength in all major muscle groups Motor examination - right side: 5/5: deltoids, biceps, triceps, wrist flexion, wrist extension, physical therapy supervisor, hip flexors, tibialis Anterior, quadriceps, toe extension (EHL), plantarflexion Motor examination - left side: 5/5: deltoids, biceps, triceps, wrist flexion, wrist extension, hip flexors, physical therapy supervisor, quadriceps, tibialis Anterior, toe extension (EHL), plantarflexion Mental Status Examination: awake, alert, oriented to person, oriented to place, oriented to time, follows commands appropriately, answers questions appropriately, no agnosia, no aphasia, no aproxia Cranial nerve examination: PERRL, EOMI, visual parrish intact, corneal reflexes brisk symmetrically, sensory to face intact, mastication intact, no facial asymmetry is present, no dysarthria, hearing is intact symmetrically, soft palate elevates bilaterally upon phonation, gag reflex intact, flexes SCM and trapezius muscles symmetrically with full power, tongue protrudes midline, no atrophy or facial fasiculations present Cerebellar examination: no dysmetria, performs finger to nose and heel to smith symmetrically without ataxia, no gait ataxia, no truncal ataxia, no difficulty with rapid alternating movements Results - Laboratory Findings CBC and BMP: 02/08/18 10:26 02/08/18 10:26 Abnormal lab findings: Abnormal lab results RBC 5.08 M/mcL (3.82-4.97) H 02/08/18 10:26 Hgb 16.0 g/dL (11.5-15.4) H 02/08/18 10:26 Hct 47.5 % (35.3-44.9) H 02/08/18 10:26 Creatinine 0.56 mg/dL (0.60-1.20) L 02/08/18 10:26 Glucose 263 mg/dL (70-105) H 02/08/18 10:26 Ur Specific Moro 1.009 (1.010-1.025) L 02/08/18 10:19 Consult Discharge Plan - Plan Referrals: Matias Brasher, PROFESSIONAL APPLICATION DESIGNER [Primary Care Provider] -
[2018-02-08] MEDS ORDERED: Nicotine 2 MG GUM BC PRN (19:51)
[2018-02-08] MEDS ORDERED: *HR* Promethazine 25 MG/ML VIAL IVP ONE (19:52)
[2018-02-08] MEDS: levETIRAcetam 250 MG TABLET PO SCH (20:11)
[2018-02-08] MEDS ORDERED: Insulin LISPRO 300 UNITS/3 ML VIAL SQ SCH (21:00)
[2018-02-08] MEDS ORDERED: NON-FORMULARY MEDICATION 1 EACH EACH (Levetiracetam [Keppra] 1,000 MG) PO SCH (21:00)
[2018-02-08] MEDS: Insulin DETEMIR 100 UNIT/ML X5UNITS SQ SCH (21:22)
[2018-02-08] MEDS: Metoprolol 100 MG TABLET PO SCH (21:22)
[2018-02-08] MEDS: Topiramate 25 MG TABLET PO SCH (21:22)
[2018-02-08] MEDS ORDERED: *HR* LORazepam 2 MG/ML VIAL IVP PRN (23:05)
[2018-02-08 23:32] LABS: Amphetamine Screen,Urine Negative ng/mL (Cutoff=1000); Barbiturate Screen,Urine Positive ng/mL (Cutoff=200); Benzodiazepines Screen,Urine Negative ng/mL (Cutoff=200); Cannabinoid Screen,Urine Negative ng/mL (Cutoff = 50); Cocaine Screen,Urine Negative ng/mL (Cutoff= 300); Opiate Screen,Urine Negative ng/mL (Cutoff=300); Phencyclidine Screen,Urine Negative ng/mL (Cutoff=25)
[2018-02-09] MEDS: Acetaminophen 325 MG TABLET PO PRN ×3 (05:49→21:33)
[2018-02-09] MEDS: *HR* Heparin 5,000 UNIT/ML VIAL SQ SCH ×2 (05:50→17:17)
[2018-02-09] MEDS: Aspirin Enteric Coated 81 MG Tablet PO SCH (08:16)
[2018-02-09] MEDS: levETIRAcetam 250 MG TABLET PO SCH ×2 (08:17→20:13)
[2018-02-09] MEDS: Metoprolol 100 MG TABLET PO SCH ×2 (08:17→20:13)
[2018-02-09] MEDS: Topiramate 25 MG TABLET PO SCH ×2 (08:17→20:14)
[2018-02-09] MEDS: Insulin LISPRO 300 UNITS/3 ML VIAL SQ SCH ×3 (08:24→16:28)
[2018-02-09] MEDS ORDERED: Acetaminophen/Butalbital/CaffeineTABLET PO SCH (09:00)
[2018-02-09] MEDS ORDERED: *HR* Pioglitazone 30 MG TABLET PO SCH (09:00)
--- NOTE | 2018-02-09 15:22 | Consult Note ---
Date of Encounter: 02/09/18 Time of Encounter: 13:30 Assessment & Recommendation (1) Generalized anxiety disorder Current visit: Yes Status: Chronic Assessment & Recommendation: Start ZOLOFT 50 mg po am xanax 0.25 mg po qd prn for anxiety follow up with out patient psychiatric services. (2) Hypertension Current visit: No Status: Chronic Qualifiers: Hypertension type: essential hypertension Qualified Code(s): I10 - Essential (primary) hypertension (3) Diabetes Current visit: No Status: Chronic Qualifiers: Diabetes mellitus type: type 2 Diabetes mellitus oysterman insulin use: without oysterman use Diabetes mellitus complication status: without complication Qualified Code(s): E11.9 - Type 2 diabetes mellitus without complications (4) Hyperglycemia Current visit: No Status: Acute (5) Seizure disorder Current visit: Yes Status: Acute (6) Intractable headache Current visit: Yes Status: Acute Qualifiers: Qualified Code(s): R51 - Headache History of Present Illness Patient: new to practice Requesting Physician: Lavelle Le MD Reason for consult: CONFUSION, AGITATION, MULTIPLE UNEXPLAINED COMPLAINTS. History of present illness: Ms. Javed is a 47 year old female was consulted today for confusion , multiple unexpected complaint. Patient was seen at her bed side , her was in room MR Vignesh Javed with her permission . As per her she stated Ihave headache and started pressing her head, then said i cannot talk. after that she would say 2-3 words and then struggled to get full sentence complete, she had full range of motion and moving in bed , at times would sit , but when i asked her to write her answers she was clenching her both hands and was unable to hold pen , as per her she has not been on any psych meds for several years as she was doing ok and lately her brother and 2 of her boys using drugs and she takes care of her grand children so she is under lot of stress , she sgreed to all . She had been cleared by neurology and her CT showed no acute abormality. she has h/o anxiety and was given in past xanax , as per her anxiety was so bad she would not go out and would have her daughter not go to school and stay with her. At present she denies any depression , no psychosis,no nadira, no si/no hi. She has significant anxiety mostly generalized and probable under lot of stress and taking care of her grandchildren is causing her to have sick role. she would have normal speech at times but then next sentence would be altered. Past psych : as per her on disability for psych reason , but no medications for 8 years , was dianosed with severe anxiety . no substance use except 1 ppd of cig. family h/o anxiety Medical headache,seizure,DM, HTN,syncope A/P Generalized ANXIETY DISORDER. R/O Conversion disorder. will Benefit from ZOLOFT 50 mg po am and xanax 0.25 mg qd prn for anxiety. need to follow up with psychiatrist and counselling. will sign off ,Thank you for consult. CC: Lavelle Le MD Past Med Surg Social Fam HX - Past Medical History Medical history: asthma, cancer, diabetes, GERD, hyperlipidemia, hypertension, liver disease, other - Past Psychiatric History Psychiatric history: Reports: anxiety Family psychiatric history: Yes Family History of Suicide: None - Past Surgical History Surgical History: cholecystectomy, hysterectomy, orthopedic, other, other - Social History Smoking Status: Current every day smoker Smokeless Tobacco Status: No Alcohol use: occasionally Drug use: none - Family History Mother Adopted: No Family Member Ethnicity: Non- Living Status: Hx Family Cardiac Disorders: Yes Medications & Allergies Metoprolol [Lopressor] 100 mg PO BID 04/11/15 [History] Aspirin [Lo-Dose Aspirin EC] 81 mg PO DAILY 01/25/18 [History] Losartan [Cozaar] 50 mg PO DAILY 01/25/18 [History] Omeprazole [PriLOSEC] 20 mg PO DAILY 01/25/18 [History] Acetaminophen/Butalbital/Caffe [Fioricet] 1 each PO DAILY #10 tablet 02/03/18 [ Rx] cephALEXin [Keflex] 500 mg PO BID #14 capsule 02/03/18 [Rx] Atorvastatin Calcium [Lipitor] 20 mg PO QPM 02/08/18 [History] Dulaglutide [Trulicity] 0.75 mg PO QWEEK 02/08/18 [History] Ibuprofen [Ibu] 800 mg PO Q8H PRN 02/08/18 [History] LevETIRAcetam [Keppra] 1,000 mg PO BID 02/08/18 [History] Pioglitazone HCl [Actos] 30 mg PO DAILY 02/08/18 [History] Solifenacin Succinate [Vesicare] 10 mg PO DAILY 02/08/18 [History] 3 Allergy/AdvReac Type Severity Reaction Status Date / Time bupropion [From Wellbutrin] Allergy Confusion Verified 02/01/18 11:01 haloperidol [From Haldol] Allergy See Verified 02/02/18 18:02 Comments latex Allergy Blister Verified 02/01/18 11:01 quinapril [From Accupril] Allergy Palpitation Verified 02/01/18 11:01 s tramadol [From Ultram] Allergy Migraine Verified 02/01/18 11:01 ibuprofen AdvReac See Verified 02/01/18 11:01 Comments morphine AdvReac Palpitation Verified 02/01/18 11:01 s sulfamethoxazole AdvReac Nausea Verified 02/01/18 11:01 [From Bactrim] trimethoprim [From Bactrim] AdvReac Nausea Verified 02/01/18 11:01 Review of Systems Psychiatric: Reports: anxiety Psychiatry Exam - Constitutional Vitals: Temp Pulse Resp BP Pulse Ox 99.7 F H 83 18 134/69 98 02/09/18 11:29 02/09/18 11:29 02/09/18 11:29 02/09/18 11:29 02/09/18 11:29 General appearance: obese - Musculoskeletal Station: other Strength & Tone: normal for patient - Psychiatric Patient Orientation: Yes Person, Yes Time, Yes Place Level of alertness: Alert Behavior: anxious Eye Contact: Maintains Eye Contact Mood Description: Anxious Affect description: congruent with mood (`) Speech Volume: Normal Speech pattern: other (will start and after 2-3 words will struggle to get out words , intermitently normal speech.) Language & Vocabulary: consistent with education Thought Process: Intact Thought Content: Yes Intact Perceptual Disturbances: No Auditory hallucinations, No Visual hallucinations Attention Span Ability: Capable of Focused Attention Memory Description: Grossly Intact Patient Reliability: Reliable Historian Fund of knowledge: Yes average Intelligence Estimate: Average Judgment: Good Insight: Partial Results - Drug Levels and Toxicology Drug Levels and Toxicology: Drug Levels and Toxicity 02/08/18 22:49 Urine Opiates Screen Negative Ur Barbiturates Screen Positive H Ur Phencyclidine Scrn Negative Ur Amphetamines Screen Negative U Benzodiazepines Scrn Negative Urine Cocaine Screen Negative U Marijuana (THC) Screen Negative - Labs Labs: Laboratory Last Values WBC 9.4 K/mcL (4.3-11.1) 02/08/18 10:26 RBC 5.08 M/mcL (3.82-4.97) H 02/08/18 10:26 Hgb 16.0 g/dL (11.5-15.4) H 02/08/18 10:26 Hct 47.5 % (35.3-44.9) H 02/08/18 10:26 MCV 93.5 fL (83.0-100.0) 02/08/18 10:26 MCH 31.5 pg (28.0-33.3) 02/08/18 10:26 MCHC 33.7 g/dL (31.6-35.5) 02/08/18 10:26 RDW 11.9 % (11.5-14.5) 02/08/18 10:26 Plt Count 266 K/mcL (140-400) 02/08/18 10:26 MPV 10.7 fL (9.4-12.4) 02/08/18 10:26 Sodium 137 mEq/L (136-145) 02/08/18 10:26 Potassium 4.2 mEq/L (3.5-5.1) 02/08/18 10:26 Chloride 103 mEq/L (98-107) 02/08/18 10:26 Carbon Dioxide 28 mEq/L (23-29) 02/08/18 10:26 BUN 7 mg/dL (6-20) 02/08/18 10:26 Creatinine 0.56 mg/dL (0.60-1.20) L 02/08/18 10:26 Est GFR ( Amer) > 60 (> 60) 02/08/18 10:26 Est GFR (Non-Af Amer) > 60 (> 60) 02/08/18 10:26 BUN/Creatinine Ratio 13 (6-26) 02/08/18 10:26 Glucose 263 mg/dL (70-105) H 02/08/18 10:26 POC Glucose 133 mg/dL (70-99) H 02/09/18 11:32 Calculated Osmolality 291 (280-300) 02/08/18 10:26 Calcium 9.3 mg/dL (8.6-10.3) 02/08/18 10:26 Troponin I < 0.03 ng/mL (< 0.04) 02/08/18 10:26 Urine Color Yellow (Yellow) 02/08/18 10:19 Urine Clarity Clear (Clear) 02/08/18 10:19 Urine pH 6.5 pH Units (5.0-8.0) 02/08/18 10:19 Ur Specific [place] 1.009 (1.010-1.025) L 02/08/18 10:19 Urine Protein Negative mg/dL (Neg-Trace) 02/08/18 10:19 Urine Glucose (UA) Normal mg/dL (Normal) 02/08/18 10:19 Urine Ketones Negative mg/dL (Negative) 02/08/18 10:19 Urine Blood Negative (Negative) 02/08/18 10:19 Urine Nitrite Negative (Negative) 02/08/18 10:19 Urine Bilirubin Negative (Negative) 02/08/18 10:19 Urine Urobilinogen Normal mg/dL (Normal) 02/08/18 10:19 Ur Leukocyte Esterase Negative (Negative) 02/08/18 10:19 Urine Opiates Screen Negative ng/mL (Lpedad=279) 02/08/18 22:49 Ur Barbiturates Screen Positive ng/mL (Xbajhh=313) H 02/08/18 22:49 Ur Phencyclidine Scrn Negative ng/mL (Cutoff=25) 02/08/18 22:49 Ur Amphetamines Screen Negative ng/mL (Hbwtkl=0299) 02/08/18 22:49 U Benzodiazepines Scrn Negative ng/mL (Ejydtq=364) 02/08/18 22:49 Urine Cocaine Screen Negative ng/mL (Cutoff= 300) 02/08/18 22:49 U Marijuana (THC) Screen Negative ng/mL (Cutoff = 50) 02/08/18 22:49 Ur Drug Screen Interp See Below 02/08/18 22:49 Consult Discharge Plan - Plan Referrals: Matias Brasher, RIO [Primary Care Provider] -
--- NOTE | 2018-02-09 15:48 | Internal Med Progress Note ---
Hospitalist Progress Note - Encounter Date of Encounter: 02/09/18 Time of Encounter: 08:10 - Subjective Interval History: Patient complaining of difficulty finding words and speech. She does not have any other weakness in her upper or lower extremities. However during my interview in between she was able to speak in complete sentences without any issues before she caught herself and again found difficulty finding words to speak. She did have low-grade fever with temperature of 99.8 this morning. She does continue to have anxiety. - Exam Vitals: Temp Pulse Resp BP Pulse Ox 99.7 F H 83 18 134/69 98 02/09/18 11:29 02/09/18 11:29 02/09/18 11:29 02/09/18 11:29 02/09/18 11:29 Exam: General: Patient is alert, no acute distress, oriented x 3 Head: atraumatic, normocephalic, Eye: normal appearance, PERRL, no scleral icterus, no conjunctival injection ENT: mucous membranes moist, normal external ear exam Neck: normal inspection, trachea midline, full ROM, no carotid bruits Chest: normal inspection, symmetric chest rise Respiratory: Good respiratory effort. Normal breath sounds. No wheezing or crackles.. Cardiovascular: Regular rate and rhythm. s1 and s2 No clicks, rubs, gallops, or murmurs. No pedal edema Abdomen: Abdomen is soft, nontender. Bowel sounds are present Musculoskeletal: Spontaneously moving all extremities. Skin: warm, dry, intact. Neuro: Alert oriented x 3 normal cranial nerves, reports word finding difficulty. However this is inconsistent. She has normal strength in all 4 extremities. Psych: Patient's affect is anxious - Assessment and Plan (1) Generalized anxiety disorder Current Visit: Yes Status: Chronic Assessment and Plan: Evaluated by psychiatry today. Diagnosed with generalized anxiety disorder. Concern for conversion disorder. Recommend starting Zoloft 50 mg by mouth daily and Xanax daily as needed for anxiety. Will start these medications. We will also make arrangements for outpatient follow-up with psychiatry. (2) Chronic headache Current Visit: Yes Status: Acute Assessment and Plan: Continues to have headache. Started on Topamax by neurology. We will continue to monitor. Treat symptomatically. (3) Diabetes Current Visit: Yes Status: Chronic Assessment and Plan: Controlled at this time. Continue diabetic diet and sliding scale insulin (4) TIA (transient ischemic attack) Current Visit: Yes Status: Ruled-out Assessment and Plan: Patient has no focal deficits. Her examination is very inconsistent and not persistent with TIA or CVA. (5) Hypertension Current Visit: Yes Status: Chronic Assessment and Plan: Blood pressure is better controlled today. Continue current medications DVT Prophylaxis: On subcutaneous heparin - Time Spent with Patient Total time spent is greater than 50% in coordination of care (as documented) at patient's floor/unit and/or counseling patient: Plan of Care Discussed with: patient Internal Medicine: Result - Labs CBC & Chem 7: 02/08/18 10:26 02/08/18 10:26 Consult Discharge Plan - Plan Referrals: Matias Brasher CNP [Primary Care Provider] - (2) Chronic headache Qualifiers: Headache type: unspecified Intractability: intractable Qualified Code(s): R51 - Headache (3) Diabetes Qualifiers: Diabetes mellitus type: type 2 Diabetes mellitus termite control service representative insulin use: without termite control service representative use Diabetes mellitus complication status: without complication Qualified Code(s): E11.9 - Type 2 diabetes mellitus without complications (5) Hypertension Qualifiers: Hypertension type: essential hypertension Qualified Code(s): I10 - Essential (primary) hypertension
[2018-02-09] MEDS ORDERED: ALPRAZolam 0.25 MG TABLET PO PRN (16:07)
[2018-02-09] MEDS ORDERED: *HR* Promethazine 25 MG/ML VIAL IVP ONE (20:00)
[2018-02-09] MEDS ORDERED: Insulin LISPRO 300 UNITS/3 ML VIAL SQ SCH (21:00)
[2018-02-09] MEDS: Insulin DETEMIR 100 UNIT/ML X5UNITS SQ SCH (21:34)
[2018-02-09] MEDS ORDERED: ALPRAZolam 0.5 MG TABLET PO ONE (21:57)
[2018-02-10] MEDS: *HR* Heparin 5,000 UNIT/ML VIAL SQ SCH (05:29)
[2018-02-10] MEDS ORDERED: *HR* Promethazine 25 MG/ML VIAL IVP PRN (07:34)
[2018-02-10] MEDS: Insulin LISPRO 300 UNITS/3 ML VIAL SQ SCH ×2 (08:10→12:31)
[2018-02-10] MEDS: Metoprolol 100 MG TABLET PO SCH (08:11)
[2018-02-10] MEDS: Topiramate 25 MG TABLET PO SCH (08:11)
[2018-02-10] MEDS: Acetaminophen 325 MG TABLET PO PRN ×2 (08:11→16:27)
[2018-02-10] MEDS: Aspirin Enteric Coated 81 MG Tablet PO SCH (08:11)
[2018-02-10] MEDS: levETIRAcetam 250 MG TABLET PO SCH (08:19)
--- NOTE | 2018-02-10 12:16 | Neurology Progress Note ---
<Clark Nazario T - Last Filed: 02/10/18 12:11> Date of Encounter: 02/10/18 Time of Encounter: 11:25 Assessment and Plan (1) Generalized anxiety disorder Current Visit: Yes Status: Chronic Initially during the exam she was having trouble speaking more than 2-3 words at a time while trying to always redirect to her hands for paresthesias and R hand weakness. Her exam was inconsistent with her complaint of inability to use her R hand. She would not use it when I was focusing on her R hand but would passively use it when distracted by exam of a different body part. She additionally reached and grabbed my pen with her R hand when I asked her to draw a clock face. Her speech improved after I explained to her the medication changes that were made for her ARGUELLO and what psych added for anxiety along with the possibility her bilateral UE paresthesias could be from anxiety. After her being explained this and saying she understood now she said "ok I am ready to go home then" without difficulty and seemed more relaxed. I did not find any evidence of a new acute neurological problem and do not think any further testing is necessary in the hospital. At this time she will stay on 1000mg keppra BID and the 25mg topiramate BID with plans of titrating up the topiramate and off keppra as an outpt. She has a followup appt in the office with Dr Lora already and will reevaluate any changes at that time. Code(s): F41.1 - Generalized anxiety disorder SNOMED Code(s): 26642553 Subjective Principal diagnosis: Generalized anxiety disorder Interval history: She was seen and evaluated 7 days ago for intractable ARGUELLO and seizure like activity. She had work up including MRI brain and CTA head and neck without an acute process shown. She was dc with 10 fioricet and on 1000mg keppra bid. She was to take 1 fioricet at onset of ARGUELLO and another 1 hour later if ARGUELLO did not improve. She had taken all 10 fioricet in the first 3 days of dc and had her pcp refill the rx with 20 more fioricet. Her ARGUELLO had not improved and was having bilateral UE paresthesias and returned to the ED here 2 days ago. She was seen 2 days ago and had her ARGUELLO medication changed with adding topiramate for prevention and benadryl and promethazine for abortive therapy while stopping the fioricet. After her initial neurology eval she started experiencing speech trouble with word finding and inability to string more than 2-3 words together while still complaining of bilateral UE paresthesias and R hand weakness. She was evaluated by psych and diagnosed with generalized anxiety disorder and given alprazolam and zoloft. She says she is able to understand what everyone says and is not confused with what they are saying but just cant get the words out. Her bilateral UE paresthesias are unchanged since arrival. She complains of inability to use her R hand since arrival here. She denies any other weakness , paresthesias, dizziness, lightheadedness, seizure like activity, diplopia, blurry vision, seeing spots or floaters, chest pain, trouble breathing, or trouble walking or feeling off balance. Objective - Constitutional Vitals: Temp Pulse Resp BP Pulse Ox 98.9 F 82 16 138/80 93 02/10/18 06:56 02/10/18 06:56 02/10/18 06:56 02/10/18 06:56 02/10/18 06:56 General appearance: Present: cooperative, A&O X 3, no acute distress - Neurological Exam Sensorimotor examination: Present: intact Motor Examination: Present: full strength in all major muscle groups Motor examination - right side: 4/5: harp repairer (Inconsitant during exam would passively use hand when distracted. ), 5/5: deltoids, biceps, triceps, wrist flexion, wrist extension, hip flexors, tibialis Anterior, quadriceps, toe extension (EHL), plantarflexion Motor examination - left side: 5/5: deltoids, biceps, triceps, wrist flexion, wrist extension, hip flexors, harp repairer, quadriceps, tibialis Anterior, toe extension (EHL), plantarflexion Sensation intact: Present: light touch (decreased ilateral hands), temperature ( intact ) Reflex and gait examination: normal gait Mental Status Examination: Present: awake, alert, oriented to person, oriented to place, oriented to time, follows commands appropriately, answers questions appropriately Cranial nerve examination: Present: PERRL, EOMI, visual parrish intact, sensory to face intact, no facial asymmetry is present, soft palate elevates bilaterally upon phonation, flexes SCM and trapezius muscles symmetrically with full power, tongue protrudes midline, no atrophy or facial fasiculations present Cerebellar examination: Present: no dysmetria, no gait ataxia Additional comments: When she was distracted she used her R hand normally. I asked her to grab my pen to draw a clock face and she reached normally with her R arm and took my pen with her R hand without difficulty. She would use her R hand passively during the encounter when not focusing on her R extremity. Results - Laboratory Findings CBC and BMP: 02/08/18 10:26 02/08/18 10:26 Abnormal lab findings: Abnormal lab results RBC 5.08 M/mcL (3.82-4.97) H 02/08/18 10:26 Hgb 16.0 g/dL (11.5-15.4) H 02/08/18 10:26 Hct 47.5 % (35.3-44.9) H 02/08/18 10:26 Creatinine 0.56 mg/dL (0.60-1.20) L 02/08/18 10:26 Glucose 263 mg/dL (70-105) H 02/08/18 10:26 POC Glucose 183 mg/dL (70-99) H 02/10/18 07:00 Ur Specific [place] 1.009 (1.010-1.025) L 02/08/18 10:19 Ur Barbiturates Screen Positive ng/mL (Dclnrr=586) H 02/08/18 22:49 Consult Discharge Plan - Plan Referrals: Matias Brasher, [employer] [Primary Care Provider] - <Romero Lora - Last Filed: 02/10/18 13:34> Date of Encounter: 02/10/18 Time of Encounter: 13:24 Assessment and Plan (1) Intractable headache Current Visit: Yes Status: Acute Headache is improved. Hopefully the topiramate will help reduce her migraine headache frequency as well. If these headaches are not actually migraine in the topiramate may not help them. She has been instructed not to use the Fioricet daily. She may have to incorporate non pharmacological remedies to manage her headaches. Qualifiers: Qualified Code(s): R51 - Headache (2) Generalized anxiety disorder Current Visit: Yes Status: Chronic As above. Multiple inconsistencies of present regard to her presentation her history and her neurologic examination. I do believe that there is a significant supratentorial component here. In any regard perhaps the Keppra may be contributing to her behavioral changes. We will therefore discharge her on topiramate 25 mg twice a day and ultimately titrate up to 100 mg twice a day. She will maintain the Keppra for now. I anticipate following up with her in my office. Subjective Interval history: The chart was reviewed, the patient was seen and examined along with Dr. Nazario. I agree with his history as documented above. Objective - Constitutional Vitals: Temp Pulse Resp BP Pulse Ox 98.4 F 68 16 128/83 94 02/10/18 12:24 02/10/18 12:24 02/10/18 12:24 02/10/18 12:24 02/10/18 12:24 - Neurological Exam Additional comments: I agree with Dr. Nazario's examination as documented. Results - Laboratory Findings CBC and BMP: 02/08/18 10:26 02/08/18 10:26 Abnormal lab findings: Abnormal lab results RBC 5.08 M/mcL (3.82-4.97) H 02/08/18 10:26 Hgb 16.0 g/dL (11.5-15.4) H 02/08/18 10:26 Hct 47.5 % (35.3-44.9) H 02/08/18 10:26 Creatinine 0.56 mg/dL (0.60-1.20) L 02/08/18 10:26 Glucose 263 mg/dL (70-105) H 02/08/18 10:26 POC Glucose 149 mg/dL (70-99) H 02/10/18 12:26 Ur Specific [place] 1.009 (1.010-1.025) L 02/08/18 10:19 Ur Barbiturates Screen Positive ng/mL (Plcial=497) H 02/08/18 22:49
[2018-02-10 12:30] VITALS: BP 128/83
--- NOTE | 2018-02-10 13:13 | Consult Note ---
Date of Encounter: 02/10/18 Time of Encounter: 12:30 Assessment & Recommendation (1) Generalized anxiety disorder Current visit: Yes Status: Chronic (2) Hypertension Current visit: Yes Status: Chronic Qualifiers: Hypertension type: essential hypertension Qualified Code(s): I10 - Essential (primary) hypertension (3) Diabetes Current visit: Yes Status: Chronic Qualifiers: Diabetes mellitus type: type 2 Diabetes mellitus assisted insulin use: without energy sales consultant use Diabetes mellitus complication status: without complication Qualified Code(s): E11.9 - Type 2 diabetes mellitus without complications (4) Hyperglycemia Current visit: No Status: Acute (5) Seizure disorder Current visit: Yes Status: Acute (6) Intractable headache Current visit: Yes Status: Acute Qualifiers: Qualified Code(s): R51 - Headache History of Present Illness Patient: new to practice Requesting Physician: Lavelle Le MD Reason for consult: FOLLOW UP History of present illness: Ms. Javed is a 47 year old female SEEN TODAY FOR FOLLOW UP , PER SHE IS SAME BUT GETTING UP , USING REST ROOM AND EATING FINE THE OUTSIDE FOOD DOES NOT LIKE HOSpital food. she was alert and oriented , speech in 1-2 words response but able to understand. patient took sertraline and alprazolam , she is optimistic about getting better. at present plan remains same will sign off. Thank you for consult. CC: Lavelle Le MD Past Med Surg Social Fam HX - Past Medical History Medical history: asthma, cancer, diabetes, GERD, hyperlipidemia, hypertension, liver disease, other - Past Surgical History Surgical History: cholecystectomy, hysterectomy, orthopedic, other, other - Social History Smoking Status: Current every day smoker Smokeless Tobacco Status: No Alcohol use: occasionally Drug use: none - Family History Mother Adopted: No Family Member Ethnicity: Non- Living Status: Hx Family Cardiac Disorders: Yes Medications & Allergies Metoprolol [Lopressor] 100 mg PO BID 04/11/15 [History] Aspirin [Lo-Dose Aspirin EC] 81 mg PO DAILY 01/25/18 [History] Losartan [Cozaar] 50 mg PO DAILY 01/25/18 [History] Omeprazole [PriLOSEC] 20 mg PO DAILY 01/25/18 [History] Acetaminophen/Butalbital/Caffe [Fioricet] 1 each PO DAILY #10 tablet 02/03/18 [ Rx] cephALEXin [Keflex] 500 mg PO BID #14 capsule 02/03/18 [Rx] Atorvastatin Calcium [Lipitor] 20 mg PO QPM 02/08/18 [History] Dulaglutide [Trulicity] 0.75 mg PO QWEEK 02/08/18 [History] Ibuprofen [Ibu] 800 mg PO Q8H PRN 02/08/18 [History] LevETIRAcetam [Keppra] 1,000 mg PO BID 02/08/18 [History] Pioglitazone HCl [Actos] 30 mg PO DAILY 02/08/18 [History] Solifenacin Succinate [Vesicare] 10 mg PO DAILY 02/08/18 [History] 3 Allergy/AdvReac Type Severity Reaction Status Date / Time bupropion [From Wellbutrin] Allergy Confusion Verified 02/01/18 11:01 haloperidol [From Haldol] Allergy See Verified 02/02/18 18:02 Comments latex Allergy Blister Verified 02/01/18 11:01 quinapril [From Accupril] Allergy Palpitation Verified 02/01/18 11:01 s tramadol [From Ultram] Allergy Migraine Verified 02/01/18 11:01 ibuprofen AdvReac See Verified 02/01/18 11:01 Comments morphine AdvReac Palpitation Verified 02/01/18 11:01 s sulfamethoxazole AdvReac Nausea Verified 02/01/18 11:01 [From Bactrim] trimethoprim [From Bactrim] AdvReac Nausea Verified 02/01/18 11:01 Review of Systems Psychiatric: Reports: anxiety Psychiatry Exam - Constitutional Vitals: Temp Pulse Resp BP Pulse Ox 98.4 F 68 16 128/83 94 02/10/18 12:24 02/10/18 12:24 02/10/18 12:24 02/10/18 12:24 02/10/18 12:24 General appearance: age & developmentally appropriate - Musculoskeletal Gait: normal Station: other Strength & Tone: normal for patient - Psychiatric Patient Orientation: Yes Person, Yes Time, Yes Place Level of alertness: Alert Behavior: cooperative Eye Contact: Maintains Eye Contact Mood Description: Anxious Affect description: congruent with mood Speech Volume: Normal Speech pattern: other (one to 2 words ) Language & Vocabulary: consistent with education Thought Process: Intact Thought Content: Yes Intact Fund of knowledge: Yes average Intelligence Estimate: Average Judgment: Good Insight: Partial Results - Labs Labs: Laboratory Last Values WBC 9.4 K/mcL (4.3-11.1) 02/08/18 10:26 RBC 5.08 M/mcL (3.82-4.97) H 02/08/18 10:26 Hgb 16.0 g/dL (11.5-15.4) H 02/08/18 10:26 Hct 47.5 % (35.3-44.9) H 02/08/18 10:26 MCV 93.5 fL (83.0-100.0) 02/08/18 10:26 MCH 31.5 pg (28.0-33.3) 02/08/18 10:26 MCHC 33.7 g/dL (31.6-35.5) 02/08/18 10:26 RDW 11.9 % (11.5-14.5) 02/08/18 10:26 Plt Count 266 K/mcL (140-400) 02/08/18 10:26 MPV 10.7 fL (9.4-12.4) 02/08/18 10:26 Sodium 137 mEq/L (136-145) 02/08/18 10:26 Potassium 4.2 mEq/L (3.5-5.1) 02/08/18 10:26 Chloride 103 mEq/L (98-107) 02/08/18 10:26 Carbon Dioxide 28 mEq/L (23-29) 02/08/18 10:26 BUN 7 mg/dL (6-20) 02/08/18 10:26 Creatinine 0.56 mg/dL (0.60-1.20) L 02/08/18 10:26 Est GFR ( Amer) > 60 (> 60) 02/08/18 10:26 Est GFR (Non-Af Amer) > 60 (> 60) 02/08/18 10:26 BUN/Creatinine Ratio 13 (6-26) 02/08/18 10:26 Glucose 263 mg/dL (70-105) H 02/08/18 10:26 POC Glucose 149 mg/dL (70-99) H 02/10/18 12:26 Calculated Osmolality 291 (280-300) 02/08/18 10:26 Calcium 9.3 mg/dL (8.6-10.3) 02/08/18 10:26 Troponin I < 0.03 ng/mL (< 0.04) 02/08/18 10:26 Urine Color Yellow (Yellow) 02/08/18 10:19 Urine Clarity Clear (Clear) 02/08/18 10:19 Urine pH 6.5 pH Units (5.0-8.0) 02/08/18 10:19 Ur Specific [place] 1.009 (1.010-1.025) L 02/08/18 10:19 Urine Protein Negative mg/dL (Neg-Trace) 02/08/18 10:19 Urine Glucose (UA) Normal mg/dL (Normal) 02/08/18 10:19 Urine Ketones Negative mg/dL (Negative) 02/08/18 10:19 Urine Blood Negative (Negative) 02/08/18 10:19 Urine Nitrite Negative (Negative) 02/08/18 10:19 Urine Bilirubin Negative (Negative) 02/08/18 10:19 Urine Urobilinogen Normal mg/dL (Normal) 02/08/18 10:19 Ur Leukocyte Esterase Negative (Negative) 02/08/18 10:19 Urine Opiates Screen Negative ng/mL (Petwkc=454) 02/08/18 22:49 Ur Barbiturates Screen Positive ng/mL (Bkkzzl=999) H 02/08/18 22:49 Ur Phencyclidine Scrn Negative ng/mL (Cutoff=25) 02/08/18 22:49 Ur Amphetamines Screen Negative ng/mL (Elppvs=2697) 02/08/18 22:49 U Benzodiazepines Scrn Negative ng/mL (Tdysmr=431) 02/08/18 22:49 Urine Cocaine Screen Negative ng/mL (Cutoff= 300) 02/08/18 22:49 U Marijuana (THC) Screen Negative ng/mL (Cutoff = 50) 02/08/18 22:49 Ur Drug Screen Interp See Below 02/08/18 22:49 Consult Discharge Plan - Plan Referrals: Matias Brasher, [employer] [Primary Care Provider] -
--- NOTE | 2018-02-10 14:44 | Discharge Summary ---
- NOTES TO OUTPATIENT PROVIDER Notes to Outpatient Provider: Patient was hospitalized here with nonspecific symptoms of some right-sided weakness, confusion and increased somnolence along with speech difficulty. She had recently been started on Keppra for possible seizures. She was evaluated by neurology. No signs of stroke were identified on exam. Patient had a head CT did not suggest any stroke. Neurology did not recommend any further workup. Patient does appear to have a large psychogenic component to her symptoms and psychiatric has been consulted in her care. She has been diagnosed with generalized anxiety disorder which needs to be treated and managed further as outpatient. She has been started on Zoloft and can also use Xanax as needed temporarily. She is concerned that Keppra was contributing to her symptoms. Discussed with neurology. Patient has been started on Topamax for her migraine and neurology intends to slowly taper her Keppra as outpatient when she follows up in clinic. She will be discharged today and will follow up with neurology, psychiatric as outpatient. I would also recommend she get physical therapy and speech therapy for symptoms do not improve. Orders not resulted at time of discharge: Pending orders 02/08/18 18:27 Keppra (Levetiracetam) Routine Date of Encounter: 02/10/18 Time of Encounter: 14:42 - Discharge Diagnosis (1) Generalized anxiety disorder Priority: Primary Status: Chronic (2) Chronic headache Priority: Secondary Status: Inactive Qualifiers: Headache type: unspecified Intractability: intractable Qualified Code(s) : R51 - Headache (3) Diabetes Priority: Secondary Status: Chronic Qualifiers: Diabetes mellitus type: type 2 Diabetes mellitus chcf insulin use: without chcf use Diabetes mellitus complication status: without complication Qualified Code(s): E11.9 - Type 2 diabetes mellitus without complications (4) Hypertension Priority: Secondary Status: Chronic Qualifiers: Hypertension type: essential hypertension Qualified Code(s): I10 - Essential (primary) hypertension (5) Conversion disorder Priority: Secondary Status: Suspected (6) TIA (transient ischemic attack) Priority: Secondary Status: Ruled-out Hospital course: Ms. Javed is a 47 year old female Patient with history of diabetes, hypertension, hyperlipidemia, anxiety disorder was hospitalized here with nonspecific symptoms of some right-sided weakness, confusion and increased somnolence along with speech difficulty. She had recently been started on Keppra for possible seizures. She was evaluated by neurology. No signs of stroke were identified on exam. Patient had a head CT did not suggest any stroke. Neurology did not recommend any further workup. Patient does appear to have a large psychogenic component to her symptoms and psychiatric has been consulted in her care. She has been diagnosed with generalized anxiety disorder which needs to be treated and managed further as outpatient. She has been started on Zoloft and can also use Xanax as needed temporarily. She is concerned that Keppra was contributing to her symptoms. Discussed with neurology. Patient has been started on Topamax for her migraine and neurology intends to slowly taper her Keppra as outpatient when she follows up in clinic. She will be discharged today and will follow up with neurology, psychiatric as outpatient. I would also recommend she get physical therapy and speech therapy for symptoms do not improve. Discharge discussed with: patient, family, nurse, continuous improvement consultant - Time Spent with Patient Total time spent providing and/or coordinating discharge services: Greater than 30 minutes (40 min) - Discharge Medications Prescriptions: ALPRAZolam [Xanax 0.25 MG Tablet] 0.25 mg PO DAILY PRN 10 Days #10 tablet PRN Reason: Anxiety Sertraline [Zoloft] 50 mg PO DAILY #30 tablet Topiramate [Topamax] 25 mg PO BID #60 tablet Home Medications: Metoprolol [Lopressor] 100 mg PO BID 04/11/15 [History] Aspirin [Lo-Dose Aspirin EC] 81 mg PO DAILY 01/25/18 [History] Losartan [Cozaar] 50 mg PO DAILY 01/25/18 [History] Omeprazole [PriLOSEC] 20 mg PO DAILY 01/25/18 [History] Acetaminophen/Butalbital/Caffe [Fioricet] 1 each PO DAILY #10 tablet 02/03/18 [ Rx] cephALEXin [Keflex] 500 mg PO BID #14 capsule 02/03/18 [Rx] Atorvastatin Calcium [Lipitor] 20 mg PO QPM 02/08/18 [History] Dulaglutide [Trulicity] 0.75 mg PO QWEEK 02/08/18 [History] Ibuprofen [Ibu] 800 mg PO Q8H PRN 02/08/18 [History] LevETIRAcetam [Keppra] 1,000 mg PO BID 02/08/18 [History] Pioglitazone HCl [Actos] 30 mg PO DAILY 02/08/18 [History] Solifenacin Succinate [Vesicare] 10 mg PO DAILY 02/08/18 [History] ALPRAZolam [Xanax 0.25 MG Tablet] 0.25 mg PO DAILY PRN 10 Days #10 tablet [Rx] Sertraline [Zoloft] 50 mg PO DAILY #30 tablet 02/10/18 [Rx] Topiramate [Topamax] 25 mg PO BID #60 tablet 02/10/18 [Rx] Allergies/Adverse Reactions: 3 Allergy/AdvReac Type Severity Reaction Status Date / Time bupropion [From Wellbutrin] Allergy Confusion Verified 02/01/18 11:01 haloperidol [From Haldol] Allergy See Verified 02/02/18 18:02 Comments latex Allergy Blister Verified 02/01/18 11:01 quinapril [From Accupril] Allergy Palpitation Verified 02/01/18 11:01 s tramadol [From Ultram] Allergy Migraine Verified 02/01/18 11:01 ibuprofen AdvReac See Verified 02/01/18 11:01 Comments morphine AdvReac Palpitation Verified 02/01/18 11:01 s sulfamethoxazole AdvReac Nausea Verified 02/01/18 11:01 [From Bactrim] trimethoprim [From Bactrim] AdvReac Nausea Verified 02/01/18 11:01 Date of admission: 02/08/18 12:04 Primary care physician: Matias Brasher CNP Consults: 02/08/18 12:05 Consult to Neurology [CONS] Routine Consulting Provider: Neurology [facility] Reason for Consult: tia Call Completed: Yes 02/08/18 14:07 Consult to Psychiatry [CONS] Routine Consulting Provider: Psych[facility] Reason consult: Confusion Agitation Other reason and/or additional details: Patient with multiple unexplained complaints. Ct of head was without acute disease. [place] initiated date and time: No Time Notified: 14:10 Call Completed: No 02/10/18 10:36 Consult to Speech Therapy [CONS] Routine Comment: Evaluate, develop and implement POC Reason for Consult: Impaired speech- Conversion disorder Time Notified: 10:36 Call Completed: Yes Discharging clinician: Lavelle Le Anticipated date of discharge: 02/10/18 - Constitutional Vitals: Temp Pulse Resp BP Pulse Ox 98.4 F 68 16 128/83 94 02/10/18 12:24 02/10/18 12:24 02/10/18 12:24 02/10/18 12:24 02/10/18 12:24 General appearance: Present: cooperative, A&O X 3, answers questions appropriately - Neck Neck exam general surgery: Present: supple, trachea midline. Absent: lymphadenopathy - Respiratory Respiratory exam: Present: CTAB. Absent: accessory muscle use, rales, rhonchi, wheezes - Cardiovascular Cardiovascular exam: Present: RRR, +S1, +S2. Absent: diastolic murmur, gallop, rubs, systolic murmur - GI/Abdominal GI/Abdominal exam: Present: normal bowel sounds, soft, no peritoneal signs. Absent: distended, tenderness - Extremities Exam Extremities exam: Present: warm, radial pulses palpable and symmetrical. Absent : calf tenderness, cyanotic, pedal edema - Neurological Exam Neurological exam: Present: alert, oriented X3, no focal deficits, speech deficit (Inconsistent exam. Patient having some word finding difficulty but at other times speaks in full sentences completely). Absent: pronater drift Additional comments: Reports numbness over her right hand. Also reports right upper extremity weakness. However on examination patient's strength is normal when she is being distracted. - Skin Skin exam: Present: dry, intact - Patient Status Disposition: Home, Self-Care Functional capacity at discharge: independent ambulation Overall status at discharge: patient is progressing back to baseline - Ambulatory Orders Ambulatory Orders: Consult to Occupational Therapy [CONS] Time Frame: 3 Days, Facility: [facility], Location: Rehab Services Consult to Physical Therapy [CONS] Time Frame: 3 Days, Facility: [facility], Location: Rehab Services Consult to Speech Therapy [CONS] Time Frame: 3 Days, Facility: [facility], Location: Rehab Services - Discharge Instructions Instructions: Diabetes Mellitus Type 2 in Adults (DC) Follow Up With: Romero Lora DO [Partnered Physician] - 02/24/18 11:15 am (in 1-2 weeks) Matias Brasher CNP [Primary Care Provider] - 02/22/18 1:45 pm (in 1-2 weeks ) Additional Instructions: Follow-up with psychiatry/counselor in 1 week - Diet and Activity Activity: increase activity as tolerated Diet: diabetic diet
== END 2018-02-10 16:41 | disposition home or self-care (01) ==
LOC: EMEROO 10:00 → 3ANU 10:00 → SUATTDRO 12:04 → 3ANU 12:30
PROVIDERS: ADMIT Internal Medicine; ATTEND Internal Medicine

== ENCOUNTER 2021-06-07 01:43 | Inpatient (IN) ==
[2021-06-07] MEDS ORDERED: Perflutren Lipid Microsphere 1.3 ML in 0.9 % Sodium Chloride 8.7 ML IVP PRN (05:17)
[2021-06-07] MEDS ORDERED: Dextrose Gel 15 GM/37.5 ML TUBE PO PRN ×2 (05:22)
[2021-06-07] MEDS ORDERED: D5% in Water 1,000 ML IVC PRN (05:22)
[2021-06-07] MEDS ORDERED: *HR* Dextrose 50 % in Water (Syg) 50 ML SYRINGE IVP PRN (05:22)
[2021-06-07] MEDS ORDERED: Naloxone 0.4 MG/ML INJ IVP PRN (05:23)
[2021-06-07] MEDS ORDERED: Acetaminophen 325 MG TABLET PO PRN (05:23)
[2021-06-07] MEDS ORDERED: *HR* HYDROmorphone (PF) 1 MG/ML SYRINGE IVP PRN (05:25)
[2021-06-07] MEDS ORDERED: Prochlorperazine 10 MG/2 ML VIAL IVP PRN (05:33)
[2021-06-07] MEDS ORDERED: levETIRAcetam 250 MG TABLET PO SCH ×2 (06:00→18:00)
[2021-06-07] MEDS ORDERED: *HR* OxyCODONE Immed Rel 5 MG TABLET PO PRN (07:48)
[2021-06-07] MEDS ORDERED: Promethazine 6.25 MG in Water for inj. (sterile) 20 ML IVPB PRN (07:48)
[2021-06-07] MEDS ORDERED: Ondansetron 4 MG/2 ML VIAL IVP PRN (07:48)
[2021-06-07] MEDS ORDERED: *HR* HYDROmorphone PF 0.5 MG/0.5 ML SYRINGE IVP PRN (07:48)
[2021-06-07] MEDS: Insulin LISPRO 300 UNITS/3 ML VIAL SUBQ SCH ×4 (07:53→23:00)
[2021-06-07] MEDS ORDERED: cefTRIAXone 1,000 MG in 0.9 % Sodium Chloride Mini Bag 100 ML IVPB ONE (09:16)
[2021-06-07] MEDS ORDERED: Ringers Solution, Lactated 1,000 ML ONE (09:19)
[2021-06-07] MEDS: Metoprolol 100 MG TABLET PO SCH ×2 (09:36→21:47)
[2021-06-07] MEDS: Ringers Solution, Lactated 1,000 ML IVC SCH (09:38)
[2021-06-07] MEDS ORDERED: TOTAL JOINT MIXTURE (100ML) INTRAART ONE (10:00)
[2021-06-07] MEDS ORDERED: Povidone-Iodine 45 ML, Sodium Chloride IRRigation 1,000 ML IR ONE (10:00)
[2021-06-07] MEDS: Aspirin Enteric Coated 81 MG Tablet PO SCH (10:29)
[2021-06-07] MEDS ORDERED: *HR* Propofol 200 MG/20 ML VIAL IVP ONE (10:53)
[2021-06-07] MEDS ORDERED: *HR* FentaNYL (PF) 100 MCG/2 ML VIAL ONE (10:53)
[2021-06-07] MEDS ORDERED: *HR* Etomidate 40 MG/20 ML VIAL IVP ONE ×2 (10:53→11:31)
[2021-06-07] MEDS ORDERED: Tranexamic Acid 1,000 MG/10 ML VIAL ONE (11:25)
[2021-06-07] MEDS ORDERED: Ondansetron 4 MG/2 ML VIAL ONE (11:30)
[2021-06-07] MEDS ORDERED: *HR* Succinylcholine 200 MG/10 ML VIAL IVP ONE (11:30)
[2021-06-07] MEDS ORDERED: Lidocaine HCL 4 ML Topical Solution (Laryng-O-Jet Kit Sterile Pak) TP ONE (11:30)
[2021-06-07] MEDS ORDERED: Lidocaine -MPF 2% 5 ML VIAL ONE (11:30)
[2021-06-07] MEDS ORDERED: *HR* Rocuronium Bromide 50 MG/5 ML VIAL ONE (11:30)
[2021-06-07] MEDS ORDERED: *HR* HYDROMORPHONE 2 MG/ML VIAL ONE (13:41)
[2021-06-07 17:29] LABS: Estimated Average Glucose 194 mg/dl; Hemoglobin A1C 8.4 %
[2021-06-07] MEDS: Nicotine 21 MG PATCH.TD24 TD SCH (18:36)
[2021-06-08] MEDS: ceFAZolin 2,000 MG in 0.9 % Sodium Chloride 100 ML IVPB SCH ×2 (00:05→08:40)
[2021-06-08] MEDS: Ringers Solution, Lactated 1,000 ML IVC SCH (00:05)
[2021-06-08] MEDS: tiZANidine 4 MG TABLET PO PRN ×2 (01:19→12:04)
[2021-06-08 05:06] LABS: Mean Corpuscular HGB Conc 33.3 g/dL (31.6-35.5); Mean Corpuscular Hemoglobin 31.3 pg (28.0-33.3); Mean Platelet Volume 11.2 fL (9.4-12.4); Platelet Count 175 K/mcL (140-400); Red Blood Count 3.51 M/mcL (3.82-4.97); Red Cell Distribution Width 12.3 % (11.5-14.5); White Blood Count 12.6 K/mcL (4.3-11.1)
[2021-06-08 05:14] LABS: INR 1.1; Prothrombin Time 12.4 Seconds (9.4-12.1)
[2021-06-08 05:16] LABS: Activated Partial Thrombo Time 26.6 Seconds (26.0-36.0)
[2021-06-08] MEDS: *HR* HYDROmorphone 2 MG TABLET PO PRN ×3 (05:23→16:01)
[2021-06-08 05:53] LABS: BUN/Creatinine Ratio 21 (6-26); Blood Urea Nitrogen 13 mg/dL (6-20); Calcium 8.1 mg/dL (8.6-10.3); Carbon Dioxide 25 mEq/L (23-29); Chloride 104 mEq/L (98-107); Chol/HDL Ratio 2.4 (0-4.9); Cholesterol 110 mg/dL (< 200); Glucose 168 mg/dL (70-105); HDL Cholesterol 46 mg/dL (40-59); LDL Cholesterol,Calculated 19 mg/dL (< 100); Magnesium 1.5 mg/dL (1.6-2.6); Osmolality,Calculated 288 (280-300); Potassium 3.7 mEq/L (3.5-5.1); Sodium 137 mEq/L (136-145); Triglycerides 226 mg/dL (< 150); eGFR For African Americans > 60 (> 60); eGFR For Non-African Americans > 60 (> 60)
[2021-06-08] MEDS ORDERED: cefTRIAXone 1,000 MG in 0.9 % Sodium Chloride Mini Bag 100 ML IVPB SCH (06:00)
[2021-06-08 06:47] VITALS: O2SAT 97
[2021-06-08] MEDS: Insulin LISPRO 300 UNITS/3 ML VIAL SUBQ SCH ×2 (07:36→12:05)
[2021-06-08] MEDS ORDERED: *HR* Enoxaparin 40 MG/0.4 ML SYRINGE SQ SCH (08:00)
[2021-06-08] MEDS: Aspirin Enteric Coated 81 MG Tablet PO SCH (08:28)
[2021-06-08] MEDS: Nicotine 21 MG PATCH.TD24 TD SCH (08:28)
[2021-06-08] MEDS: Metoprolol 100 MG TABLET PO SCH (08:28)
[2021-06-08] MEDS: hydrALAZINE 10 MG TABLET PO SCH ×2 (08:28)
[2021-06-08] MEDS ORDERED: levETIRAcetam 250 MG TABLET PO SCH (09:00)
[2021-06-08 10:59] VITALS: BP 148/79; PULSE 92; TEMP 98.3
== END 2021-06-08 16:18 | disposition home health service (06) | DRG 308 ==
LOC: 4WAOSI → OBSVTOIN 03:52 → SUATTDRO 03:52
PROVIDERS: ADMIT Student in an Organized Health Care Education/Training Program; ATTEND Family Medicine